=== PATIENT | male | born 1990 | race African-American/Black ===

== ENCOUNTER 2019-05-31 21:11 | Emergency (ER) | payer OTHER ==
[~2019-05-31] VITALS: Ht 175.3 cm; Wt 86.4 kg
[2019-05-31] MEDS ORDERED: KETOROLAC 30 MG/ML VIAL (J1885) IV ONE (21:45)
[2019-05-31] MEDS ORDERED: ONDANSETRON 4MG/2ML VIAL (J2405) IV ONE (21:45)
[2019-05-31] MEDS ORDERED: NS 1,000 ML IV ONE (21:45)
[2019-05-31 22:42] LABS: BASO % 0.2 % (0.0-1.0); EOS # 0.1 10^3/uL (0.0-0.5); HEMATOCRIT 48.4 % (42.0-52.0); HEMOGLOBIN 15.1 g/dl (13.5-17.5); LYMPH # 1.6 10^3/uL (1.5-5.0); LYMPH % 26.1 % (24.0-44.0); MEAN CORPUSCULAR HEMOGLOBIN 23.2 pg (27.0-33.0); MEAN CORPUSCULAR HGB CONC 31.2 g/dl (32.0-36.5); MEAN CORPUSCULAR VOLUME 74.5 fl (80.0-96.0); MONO # 0.2 10^3/uL (0.0-0.8); MONO % 3.4 % (0.0-5.0); NEUTROPHILS % 67.8 % (36.0-66.0); PLATELET COUNT, AUTOMATED 144 10^3/uL (150-450)
[2019-05-31] MEDS ORDERED: ISOVUE-370 76% 100ML VIAL (Q9967) As Ordered ONE (23:06)
[2019-05-31 23:20] LABS: ALBUMIN 4.2 GM/DL (3.2-5.2); ALT/SGPT 53 U/L (12-78); BILIRUBIN,DIRECT < 0.1 MG/DL (0.0-0.2); BILIRUBIN,TOTAL 0.4 MG/DL (0.2-1.0); LIPASE 71 U/L (73-393); TOTAL PROTEIN 7.9 GM/DL (6.4-8.2)
--- NOTE | 2019-06-01 00:26 | REPVR ---
PROCEDURE INFORMATION: Exam: CT Abdomen And Pelvis With Contrast Exam date and time: 05/31/2019 9:42 PM Age: 28 years old Clinical indication: Abdominal pain; Localized; Right lower quadrant (rlq); Additional info: Rlq abdominal pain, nausea, loss appetite TECHNIQUE: Imaging protocol: Computed tomography of the abdomen and pelvis with intravenous contrast. Radiation optimization: All CT scans at this facility use at least one of these dose optimization techniques: automated exposure control; mA and/or kV adjustment per patient size (includes targeted exams where dose is matched to clinical indication); or iterative reconstruction. Contrast material: ISO; Contrast volume: 100 ml; Contrast route: AC; COMPARISON: No relevant prior studies available. FINDINGS: Liver: Normal. No mass. Gallbladder and bile ducts: Normal. No calcified stones. No ductal dilation. Pancreas: Normal. No ductal dilation. Spleen: Normal. No splenomegaly. Adrenals: Normal. No mass. Kidneys and ureters: Normal. No hydronephrosis. Stomach and bowel: Moderate stool in the colon. No abnormal bowel dilatation. No abnormal bowel wall thickening. Negative for colonic diverticulitis. Appendix: Appendix is normal. Intraperitoneal space: Unremarkable. No free air. No significant fluid collection. Vasculature: No abdominal aortic aneurysm. Nonocclusive mild irregular hypodensity in the right anterolateral wall of the superior mesenteric artery approximately 3.5 cm distal to the origin. Series 201, image 56. No occlusion of the superior mesenteric artery are celiac trunk is evident. Lymph nodes: Unremarkable. No enlarged lymph nodes. Bladder: Unremarkable as visualized. Reproductive: Prostate is normal in size. Bones/joints: Unremarkable. No acute fracture. Soft tissues: Unremarkable. IMPRESSION: 1. Nonocclusive mild irregular hypodensity in the right anterolateral wall of the superior mesenteric artery. It is unclear if this represents motion artifact versus atherosclerotic plaque versus mural thrombus. 2. Superior mesenteric artery and celiac trunk are patent otherwise. 3. No acute findings otherwise. Electronically signed by: Leonardo Bagley On 06/01/2019 00:25:55 AM
[2019-06-01] MEDS ORDERED: SIMETHICONE 80 MG CHEW TAB PO STA (00:44)
[2019-06-01] MEDS ORDERED: DICYCLOMINE 10 MG CAP PO ONE (01:00)
[2019-06-01] MEDS ORDERED: SIME180C PO (01:22)
[2019-06-01] MEDS ORDERED: DICY10CA13 PO (01:22)
[2019-06-01 01:30] VITALS: BP 144/76
[2019-06-02] MEDS ORDERED: OMEP40CA97 PO (17:22)
[2019-06-02] MEDS ORDERED: CARA1TAB6 PO (17:23)
== END 2019-06-01 01:34 | disposition home or self-care (01) ==
LOC: M ED 21:11
DX: K55.069 Acute infarction of intestine, part and extent unspecified (principal); R10.84 Generalized abdominal pain; R11.0 Nausea
CPT/HCPCS: 74177; 80047; 80076; 83690; 85025; 96361; 96374; 96375; 99284; J1885; J2405; Q9967

== ENCOUNTER 2019-06-02 15:36 | Emergency (ER) | payer OTHER ==
[~2019-06-02] VITALS: Ht 175.3 cm; Wt 90.3 kg
[~2019-06-02 15:36] MED LIST: DICY10CA13 PO; SIME180C PO
[2019-06-02] MEDS ORDERED: NS 1,000 ML IV ONE (16:15)
[2019-06-02] MEDS ORDERED: PANTOPRAZOLE 40MG INJ (PROTONIX) (C9113) IV ONE (16:15)
[2019-06-02 16:43] LABS: EOS # 0.2 10^3/uL (0.0-0.5); EOS % 3.7 % (0.0-3.0); HEMATOCRIT 50.3 % (42.0-52.0); HEMOGLOBIN 15.7 g/dl (13.5-17.5); LYMPH # 1.7 10^3/uL (1.5-5.0); LYMPH % 41.1 % (24.0-44.0); MEAN CORPUSCULAR HEMOGLOBIN 23.6 pg (27.0-33.0); MEAN CORPUSCULAR HGB CONC 31.2 g/dl (32.0-36.5); MEAN CORPUSCULAR VOLUME 75.6 fl (80.0-96.0); MONO # 0.2 10^3/uL (0.0-0.8); MONO % 5.7 % (0.0-5.0); NEUTROPHILS # 1.9 10^3/uL (1.5-8.5); NEUTROPHILS % 48.5 % (36.0-66.0); PLATELET COUNT, AUTOMATED 119 10^3/uL (150-450); RED BLOOD COUNT 6.65 10^6/uL (4.30-6.10)
--- NOTE | 2019-06-02 16:47 | REP ---
KUB ABDOMEN AND PELVIS: KUB film of abdomen and pelvis performed. Bowel gas pattern is normal and no evidence of obstruction. No abnormal calcifications are seen. The visualized osseous structures are unremarkable. IMPRESSION: Negative KUB exam. Electronically Signed by Demond Kolb MD 06/03/2019 11:52 A
[2019-06-02 17:10] LABS: ALT/SGPT 59 U/L (12-78); BILIRUBIN,DIRECT 0.1 MG/DL (0.0-0.2); BILIRUBIN,TOTAL 0.6 MG/DL (0.2-1.0); BLOOD UREA NITROGEN 7 MG/DL (7-18); CARBON DIOXIDE LEVEL 28 MEQ/L (21-32); CHLORIDE LEVEL 102 MEQ/L (98-107); CREATININE FOR GFR 1.06 MG/DL (0.70-1.30); GLOMERULAR FILTRATION RATE > 60.0 (>60); GLUCOSE, FASTING 73 MG/DL (70-100); LIPASE 47 U/L (73-393); POTASSIUM SERUM 3.6 MEQ/L (3.5-5.1); SODIUM LEVEL 139 MEQ/L (136-145); TOTAL PROTEIN 7.7 GM/DL (6.4-8.2)
[2019-06-02] MEDS ORDERED: OMEP40CA97 PO (17:22)
[2019-06-02] MEDS ORDERED: CARA1TAB6 PO (17:23)
[2019-06-02 17:30] VITALS: BP 152/74
== END 2019-06-02 17:58 | disposition home or self-care (01) ==
LOC: M ED 15:36
DX: R10.13 Epigastric pain (principal); R11.0 Nausea
CPT/HCPCS: 74018; 80048; 80076; 83690; 85025; 96361; 96374; 99284; C9113

== ENCOUNTER → 2019-06-15 | Outpatient (CLI) | payer OTHER ==
[~2019-06-15] MED LIST changes: +CARA1TAB6 PO; +OMEP40CA97 PO
[2019-06-15 11:07] LABS: INR 1.21
[2019-06-15 11:08] LABS: PARTIAL THROMBOPLASTIN TIME 30.3 SECONDS (25.0-38.4)
[2019-06-15 11:20] LABS: ALT/SGPT 55 U/L (12-78); BILIRUBIN,DIRECT 0.2 MG/DL (0.0-0.2); BILIRUBIN,TOTAL 0.5 MG/DL (0.2-1.0); TOTAL PROTEIN 7.4 GM/DL (6.4-8.2)
[2019-06-15 11:37] LABS: H PYLORI QUALITATIVE IgG DETECTED (NEGATIVE)
[2019-06-17 08:06] LABS: F8 ACTIVITY FOR F8 PANEL 131 % (56-140); F8 ACTIVITY vWB FOR F8 PANEL 72 % (50-200); F8 ANTIGEN FOR F8 PANEL 131 % (50-200); IGASUB2 98.3 mg/dL (73.2-301.2); IGASUB3 26.6 mg/dL (13.4-97.9); IgA SERUM (part of Subclasses) 136 mg/dL (90-386); TISSUE TRANSGLUTAMINASE IgA <2 U/mL (0-3)
== END ==
LOC: M LAB 10:20
PROVIDERS: ATTEND Internal Medicine Gastroenterology
DX: R10.13 Epigastric pain (principal)

== ENCOUNTER → 2019-06-30 | Outpatient (CLI) | payer OTHER ==
--- NOTE | 2019-07-01 04:11 | REP ---
Clinical: Abdominal and epigastric pain. Technique: Real time borden scale ultrasound examination using curved array transducer. Findings: Liver, spleen, and pancreas are normal in contour, size, echogenicity without focal hepatic, splenic or pancreatic lesion identified. The gallbladder is normal and without gallstones, wall thickening, or pericholecystic fluid. No biliary ductal dilatation is appreciated and the common bile duct measures 4.5 mm diameter. The bilateral kidneys are normal in reniform shape without hydronephrosis. Right kidney measures 12.7 x 6.3 x 4.7 cm. Left kidney measures 11.6 x 6.5 x 5.3 cm. Abdominal aorta appears normal. No ascites. Doppler interrogation of the mesenteric/splanchnic vasculature cannot be performed due to overlying bowel gas. Impression: 1. Normal complete abdominal ultrasound. 2. Doppler interrogation of the splanchnic vasculature could not be performed due to extensive overlying bowel gas. Electronically Signed by Kaleb Guillaume MD 07/01/2019 04:01 A
== END ==
LOC: M RAD 07:39
PROVIDERS: ATTEND Internal Medicine Gastroenterology
DX: R10.13 Epigastric pain (principal)

== ENCOUNTER 2019-08-13 12:24 | Day surgery (SDC) | payer OTHER ==
[~2019-08-13] VITALS: Ht 175.3 cm; Wt 91.2 kg
[~2019-08-13 12:24] MED LIST changes: +IBUP200C25 PO; +NS 1,000 ML IV ONE
[2019-08-13] MEDS ORDERED: propofoL 200 MG/20 ML VIAL As Ordered ONE (13:51)
[2019-08-13] MEDS ORDERED: LIDOCAINE 2% 100MG/5ML SDV (FOR ANES.) As Ordered ONE (13:51)
--- NOTE | 2019-08-13 14:21 | ROOR ---
Patient Name: Vishal Peters Procedure Date: 08/13/2019 1:24 PM Date of : 1990 Age: 29 Room: [facility] Gender: Male Note Status: Finalized Procedure: Upper GI endoscopy Indications: Epigastric abdominal pain, Nausea with vomiting, Persistent vomiting of unknown cause Providers: Sumit Pereyra MD Referring MD: BHARATH SINHA MD Requesting Provider: Medicines: Monitored Anesthesia Care Complications: No immediate complications. Procedure: Pre-Anesthesia Assessment: - Prior to the procedure, a History and Physical was performed, and patient medications and allergies were reviewed. The patient is competent. The risks and benefits of the procedure and the sedation options and risks were discussed with the patient. All questions were answered and informed consent was obtained. Patient identification and proposed procedure were verified by the physician, the nurse and the anesthesiologist in the procedure room. Mental Status Examination: alert and oriented. Airway Examination: normal oropharyngeal airway and neck mobility. Respiratory Examination: clear to auscultation. CV Examination: normal. Prophylactic Antibiotics: The patient does not require prophylactic antibiotics. Prior Anticoagulants: The patient has taken no previous anticoagulant or antiplatelet agents. ASA Grade Assessment: II - A patient with mild systemic disease. After reviewing the risks and benefits, the patient was deemed in satisfactory condition to undergo the procedure. The anesthesia plan was to use monitored anesthesia care (MAC). Immediately prior to administration of medications, the patient was re-assessed for adequacy to receive sedatives. The heart rate, respiratory rate, oxygen saturations, blood pressure, adequacy of pulmonary ventilation, and response to care were monitored throughout the procedure. The physical status of the patient was re-assessed after the procedure. The Endoscope was introduced through the mouth, and advanced to the second part of duodenum. The upper GI endoscopy was accomplished without difficulty. The patient tolerated the procedure well. Findings: The examined esophagus was normal. The Z-line was regular and was found 42 cm from the incisors. Scattered mild inflammation characterized by erythema and granularity was found in the gastric antrum. Biopsies were taken with a cold forceps for Helicobacter pylori testing. Verification of patient identification for the specimen was done by the physician and nurse using the patient's name, date and medical record number. Estimated blood loss was minimal. The duodenal bulb and second portion of the duodenum were normal. Biopsies for histology were taken with a cold forceps for evaluation of celiac disease. Impression: - Normal esophagus. - Z-line regular, 42 cm from the incisors. - Gastritis. Biopsied. - Normal duodenal bulb and second portion of the duodenum. Biopsied. Recommendation: - Patient has a contact number available for emergencies. The signs and symptoms of potential delayed complications were discussed with the patient. Return to normal activities tomorrow. Written discharge instructions were provided to the patient. - Anti-acid reflux diet -- small meals, sit upright atleast 1 hour after meals, avoid fatty/ oily foods and avoid foods that cause reflux. - Continue present medications. - Await pathology results. - Telephone GI clinic for pathology results in 2 weeks. - Return to primary care physician. Sumit Pereyra MD Sumit Pereyra MD 08/13/2019 2:20:49 PM Electronically signed by Sumit Pereyra MD Number of Addenda: 0 Note Initiated On: 08/13/2019 1:24 PM Estimated Blood Loss: Estimated blood loss was minimal.
[2019-08-13 14:45] VITALS: BP 125/69
== END 2019-08-13 15:04 | disposition home or self-care (01) ==
LOC: M OPP 12:24
PROVIDERS: ATTEND Internal Medicine Gastroenterology
DX: K29.70 Gastritis, unspecified, without bleeding (principal); R11.2 Nausea with vomiting, unspecified; R11.15 Cyclical vomiting syndrome unrelated to migraine; R10.13 Epigastric pain

== ENCOUNTER 2020-04-17 18:27 | Emergency (ER) | payer OTHER ==
[~2020-04-17] VITALS: Ht 177.8 cm; Wt 90.9 kg
[~2020-04-17 18:27] MED LIST changes: -NS 1,000 ML IV ONE
--- OUTSIDE RECORDS SUMMARY | 2020-04-17 18:31 | CCD ---
Author Author [facility] Address Unknown Phone Unavailable Support Name Relationship Address Phone NONE, PT PER Next Of Kin - -, - - - [employer] Next Of Kin [address] [place] [address] Unavailable NEERAJ FIGUEROA Next Of Kin [address] [place] [address] Re-disclosure Warning The records that you are about to access may contain information from federally-assisted alcohol or drug abuse programs. If such information is present, then the following federally mandated warning applies: This information has been disclosed to you from records protected by federal confidentiality rules (42 CFR part 2). The federal rules prohibit you from making any further disclosure of this information unless further disclosure is expressly permitted by the written consent of the person to whom it pertains or as otherwise permitted by 42 CFR part 2. A general authorization for the release of medical or other information is NOT sufficient for this purpose. The Federal rules restrict any use of the information to criminally investigate or prosecute any alcohol or drug abuse patient.The records that you are about to access may contain highly sensitive health information, the redisclosure of which is protected by Article 27-F of the [facility] Public Health law. If you continue you may have access to information: Regarding HIV / AIDS; Provided by facilities licensed or operated by the [facility] Office of Mental Health; or Provided by the [facility] Office for People With Developmental Disabilities. If such information is present, then the following [facility] mandated warning applies: This information has been disclosed to you from confidential records which are protected by state law. State law prohibits you from making any further disclosure of this information without the specific written consent of the person to whom it pertains, or as otherwise permitted by law. Any unauthorized further disclosure in violation of state law may result in a fine or retirement sentence or both. A general authorization for the release of medical or other information is NOT sufficient authorization for further disc losure. Encounters Encounter Providers Location Date Indications Data Source(s ) Outpatient 07/11/2019 07:11:00 AM EDT [facility] Outpatient 06/16/2019 04:55:00 AM EDT [facility] Medications Medication Brand Name Start Date Product Form Dose Route Admi nistrative Instructions Pharmacy Instructions Status Indications Reaction Description Data Source(s) 8 HR Acetaminophen 650 MG Extended Release Oral Tablet [Tyle nol] Tylenol 8 Hour 05/18/2019 12:00:00 AM EDT active [facility] ([facility], ) Insurance Providers Payer name Policy type / Coverage type Policy ID Covered republican ID Covered republican's relationship to [place] Policy [place] Plan Information [employer] D[employer]Y [id number] SP [id number] HU[employer] EAST REG O [id number] S [id number] E[employer] D[employer]Y [id number] SP [id number] EAST [employer] - O/P [id number] 18 [id number] Problems, Conditions, and Diagnoses Code Display Name Description Problem Type Effective Dates Data Source(s) 5765882 Lumbosacral radiculopathy Lumbosacral radiculopathy Pr oblem 05/18/2019 12:00:00 AM EDT [facility] ([facility], ) [id number] Numbness of lower limb Numbness of lower limb Problem 05/18/2019 12:00:00 AM EDT [facility] ([facility], ) [id number] Chronic low back pain Chronic low back pain Problem 05/18/2019 12:00:00 AM EDT [facility] ([facility], ) Surgeries/Procedures Procedure Description Date Indications Data Source(s) Needle electromyography, each extremity, with related paraspinal areas, when performed, done with nerve conduction, amplitude and latency/velocity study; complete, five or more muscles studied, innervated by three or more nerves or four or more spinal levels (list separately in addition to the code for primary procedure). 05/19/2019 12:00:00 AM EDT [facility] T ([facility], ) Needle electromyography, each extremity, with related paraspinal areas, when performed, done with nerve conduction, amplitude and latency/velocity study; complete, five or more muscles studied, innervated by three or more nerves or four or more spinal levels (list separately in addition to the code for primary procedure). 05/19/2019 12:00:00 AM EDT [facility] ([facility]) [address] Nerve conduction studies 13 or more studies NEW 201205/19/2019 12:00:00 AM EDT [facility] ([facility]) Vital Signs ID Date Data Source UNK Name Value Range Interpretation Code Description Data Source(s) Body weight 92.081 kg 92.081 kg [facility] ([facility]) Body mass index (BMI) [Ratio] 29.1 kg/m2 29.1 k g/m2 [facility] ([facility]) Body weight 203.00 [lb_av] 203.00 [lb_av] [facility] ([facility]) Body height 70 [in_i] 70 [in_i] [facility] ([facility]) 5'10" Diastolic blood pressure 68 mm[Hg] 68 mm[Hg] [facility] ([facility]) Systolic blood pressure 124 mm[Hg] 124 mm[Hg] [facility] ([facility]) Body mass index (BMI) [Ratio] 27.5 kg/m2 27.5 k g/m2 [facility] ([facility]) Body weight 186.00 [lb_av] 186.00 [lb_av] [facility] ([facility]) Body height 69 [in_i] 69 [in_i] [facility] ([facility]) 5'9" Heart rate 72 /min 72 /min [facility] ([facility]) Diastolic blood pressure 80 mm[Hg] 80 mm[Hg] [facility] ([facility]) Systolic blood pressure 120 mm[Hg] 120 mm[Hg] [facility] ([facility])
[2020-04-17] MEDS ORDERED: ONDA4TAB6 PO (18:48)
[2020-04-17] MEDS ORDERED: NS 1,000 ML IV ONE (19:45)
[2020-04-17] MEDS ORDERED: ACETAMINOPHEN 325 MG TAB PO ONE (19:45)
[2020-04-17] MEDS ORDERED: GI COCKTAIL 50ML BTL(HYOSCYAMINE/MAALOX/LIDOCAINE VISCOUS)(1:3:1) PO ONE (19:45)
[2020-04-17] MEDS ORDERED: ONDANSETRON 4MG/2ML VIAL IV ONE (19:45)
--- NOTE | 2020-04-17 20:00 | REP ---
INDICATION: DYSPNEA/COUGH. COMPARISON: None. TECHNIQUE: SINGLE PORTABLE AP VIEW OF THE CHEST WAS PERFORMED. FINDINGS: THERE IS NO ACUTE INFILTRATE OR PULMONARY EDEMA. LUNGS ARE CLEAR. HEART IS NOT SIGNIFICANTLY ENLARGED. MEDIASTINAL SILHOUETTE IS UNREMARKABLE. THE VISUALIZED OSSEOUS STRUCTURES ARE INTACT. IMPRESSION: NO ACUTE PULMONARY DISEASE. <Electronically signed by Demond Kolb > 04/17/201955
[2020-04-17 20:46] LABS: BASO % 0.3 % (0.0-1.0); EOS # 0.1 10^3/uL (0.0-0.5); EOS % 2.2 % (0.0-3.0); HEMATOCRIT 45.6 % (42.0-52.0); HEMOGLOBIN 13.9 g/dl (13.5-17.5); LYMPH # 1.8 10^3/uL (1.5-5.0); LYMPH % 56.8 % (24.0-44.0); MEAN CORPUSCULAR HEMOGLOBIN 22.9 pg (27.0-33.0); MEAN CORPUSCULAR HGB CONC 30.5 g/dl (32.0-36.5); MONO # 0.2 10^3/uL (0.0-0.8); MONO % 6.8 % (2.0-8.0); NEUTROPHILS # 1.1 10^3/uL (1.5-8.5); NEUTROPHILS % 33.6 % (36.0-66.0); PLATELET COUNT, AUTOMATED 156 10^3/uL (150-450); RED BLOOD COUNT 6.08 10^6/uL (4.30-6.10); WHITE BLOOD COUNT 3.2 10^3/uL (4.0-10.0)
--- OUTSIDE RECORDS SUMMARY | 2020-04-17 21:02 | CCD ---
Author [facility] Address Unknown Phone Unavailable Support Name Relationship Address Phone [place] Next Of Kin [address] [place] [id number] NONE, PT PER Next Of Kin - -, - - - [employer] Next Of Kin [address] [place] [address] Unavailable NEERAJ FIGUEROA Next Of Philip [phone], [place] [address] Re-disclosure Warning The records that you are [...] is protected by Article 27-F of the [facility] Public Health law. If you continue you may have access to information: Regarding HIV / AIDS; Provided by facilities licensed or operated by the [facility] Office of Mental Health; or Provided by the [facility] Office for People With Developmental Disabilities. If such information is present, then the following [facility] mandated warning applies: This information has [...] law may result in a fine or shelter sentence or both. A general authorization for the release of medical or other information is NOT sufficient authorization for further disc losure. Encounters Encounter Providers Location Date Indications Data Source(s ) Outpatient 07/11/2019 07:11:00 AM EDT [facility] Outpatient 06/16/2019 04:55:00 AM EDT [facility] Medications Medication Brand Name Start Date Product Form Dose Route Admi nistrative Instructions Pharmacy Instructions Status Indications Reaction Description Data Source(s) 8 HR Acetaminophen 650 MG Extended Release Oral Tablet [Tyle nol] Tylenol 8 Hour 05/18/2019 12:00:00 AM EDT active [facility] ([facility], ) Insurance Providers Payer name Policy type / Coverage type Policy ID Covered republican ID Covered republican's relationship to [place] Policy [place] Plan Information [employer]Y [id number] SP [id number] HU[employer] EAST REG O [id number] S [id number] [facility] ACTIVE DUTY [id number] SP [id number] EAST [employer] - O/P [id number] Problems, Conditions, and Diagnoses Code Display Name Description Problem Type Effective Dates Data Source(s) 9368343 Lumbosacral radiculopathy Lumbosacral radiculopathy Pr oblem 05/18/2019 12:00:00 AM EDT [facility] ([facility], ) [id number] Numbness of lower limb Numbness of lower limb Problem 05/18/2019 12:00:00 AM EDT [facility] ([facility], ) [id number] Chronic low back pain Chronic low back pain Problem 05/18/2019 12:00:00 AM EDT [facility] ([facility], ) Surgeries/Procedures Procedure Description Date Indications Data Source(s) Needle electromyography, each extremity, with related paraspinal areas, when performed, done with nerve conduction, amplitude and latency/velocity study; complete, five or more muscles studied, innervated by three or more nerves or four or more spinal levels (list separately in addition to the code for primary procedure). 05/19/2019 12:00:00 AM EDT [facility] ([facility], ) Needle electromyography, each extremity, with related paraspinal areas, when performed, done with nerve conduction, amplitude and latency/velocity study; complete, five or more muscles studied, innervated by three or more nerves or four or more spinal levels (list separately in addition to the code for primary procedure). 05/19/2019 12:00:00 AM ED[facility] [address] Nerve conduction studies 13 or more studies NEW 201205/19/2019 12:00:00 AM EDT [facility] ([facility]) Vital Signs ID Date Data Source UNK Name Value Range Interpretation Code Description Data Source(s) Body weight 92.081 kg 92.081 kg [facility] ([facility]) Body mass index (BMI) [Ratio] 29.1 kg/m2 29.1 k g/m2 [facility] ([facility]) Body weight 203.00 [lb_av] 203.00 [lb_av] [facility]) Body height 70 [in_i] 70 [in_i] [facility] ([facility]) 5'10" Diastolic blood pressure 68 mm[Hg] 68 mm[Hg] [facility] ([facility]) Systolic blood pressure 124 mm[Hg] 124 mm[Hg] [facility] ([facility]) Body mass index (BMI) [Ratio] 27.5 kg/m2 27.5 k g/m2 [facility] ([facility]) Body weight 186.00 [lb_av] 186.00 [lb_av] [facility]) Body height 69 [in_i] 69 [in_i] [facility] ([facility]) 5'9" Heart rate 72 /min 72 /min [facility] ([facility]) Diastolic blood pressure 80 mm[Hg] 80 mm[Hg] [facility] ([facility]) Systolic blood pressure 120 mm[Hg] 120 mm[Hg] [facility] ([facility])
[2020-04-17 21:20] LABS: ALBUMIN 3.7 GM/DL (3.2-5.2); ALT/SGPT 196 U/L (12-78); BILIRUBIN,DIRECT < 0.1 MG/DL (0.0-0.2); BILIRUBIN,TOTAL 0.3 MG/DL (0.2-1.0); BLOOD UREA NITROGEN 14 MG/DL (7-18); CALCIUM LEVEL 8.5 MG/DL (8.5-10.1); CARBON DIOXIDE LEVEL 30 MEQ/L (21-32); CHLORIDE LEVEL 107 MEQ/L (98-107); CK-MB VALUE MASS 1.4 NG/ML (<3.6); CPK CREATINE PHOSPHOKINASE 178 U/L (39-308); CREATININE FOR GFR 0.97 MG/DL (0.70-1.30); GLOMERULAR FILTRATION RATE > 60.0 (>60); GLUCOSE, FASTING 78 MG/DL (70-100); MB/CK RELATIVE INDEX 0.79 (< OR =4); NT-PRO BNP < 5 PG/ML (<125); SODIUM LEVEL 142 MEQ/L (136-145); TROPONIN I < 0.02 NG/ML (< 0.10)
[2020-04-18] VITALS: BP 122/60
--- NOTE | 2020-04-18 16:28 | ECGEPIP ---
[facility] - ED Test Date: 2020-04-17 Pat Name: HUSEYIN FIGUEROA Department: Room: - Gender: Male Analytical Technician: RICHARD : 1990 Requested By: Jh Garrett Order Number: [id number] Reading MD: Jc Philippe Measurements Intervals [place] Rate: 63 P: 50 MS: 178 QRS: 49 QRSD: 98 T: 19 QT: 346 QTc: 354 Interpretive Statements Normal sinus rhythm with sinus arrhythmia ST elevation, consider early repolarization, pericarditis, or injury Comparison tracing not on file Electronically Signed on 04-18-2020 16:28:01 EST by Jc Philippe
== END 2020-04-18 00:34 | disposition home or self-care (01) ==
LOC: M ED 18:27
DX: U07.1 COVID-19 (principal); R06.02 Shortness of breath; R11.2 Nausea with vomiting, unspecified; R19.7 Diarrhea, unspecified
CPT/HCPCS: 71045; 80048; 80076; 82550; 82553; 83880; 84484; 85025; 93005; 93041; 94760; 96361; 96374; 99285; J2405

== ENCOUNTER 2020-07-19 00:21 | Inpatient (IN) | payer OTHER ==
[~2020-07-19] VITALS: Ht 177.8 cm; Wt 91.0 kg
[~2020-07-19 00:21] MED LIST changes: +ONDA4TAB6 PO; -SIME180C PO; +SIME180C25 PO
[2020-07-19] MEDS ORDERED: IBUP1TAB7 PO (05:58)
[2020-07-19] MEDS ORDERED: MAALOX 30 ML SUSP *UDC PO PRN (08:10)
[2020-07-19] MEDS ORDERED: MOM 30ML SUSPENSION UDC PO PRN (08:10)
[2020-07-19] MEDS ORDERED: AMIT10TA7 PO (08:26)
[2020-07-19] MEDS ORDERED: hydrOXYzine 50 MG TAB PO PRN (14:25)
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
[2020-07-19] MEDS ORDERED: FLUoxetine 10 MG CAP PO ONE (15:00)
[2020-07-19 16:20] VITALS: BP 124/56
[2020-07-19] MEDS: risperiDONE 2 MG TAB PO SCH (21:33)
[2020-07-20] MEDS ORDERED: UNRESOLVED CLARIFICATION ENTRY XX SCH (00:01)
[2020-07-20 06:30] VITALS: BP 103/51
[2020-07-20] MEDS: FLUoxetine 20 MG CAP PO SCH (09:53)
--- NOTE | 2020-07-20 13:04 | HPEPDOC ---
General Date of Admission July 19, 2020 at 08:09 Date of Service: July 20, 2020 Chief Complaint The patient is a 29-year-old male admitted with a reason for visit of Unspecified Depressive Disorder. 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 He is being examined here for medical history and physical. He reports he often feels dizzy on standing up and fall face down. He could not tell me how he came to [facility] ED and how he fell down when he was found face down in the road. He also reports that he has trouble swallowing solid food and feels like it gets stuck in the throat so he prefers to eat soft foods likel oatmeal. He also reports that every night when he lays down he feels the food coming up to his throat and he has to throw up. He complains of epigastric pain dull aching 4/10 in intensity. He also complains of left illiac fossa pain. He reports that he has daily bowel movements. Home Medications Scheduled Amitriptyline HCl (Amitriptyline HCl) 10 Mg Tablet, PO DAILY, (Reported) Scheduled PRN Ibuprofen (Ibuprofen) 800 Mg Tablet, 800 MG PO TID PRN for PAIN, (Reported) Allergies Coded Allergies: No Known Allergies (Unverified , 05/31/19) Past Medical History Medical History Hypertension Surgical History None Family History Significant Family History: Diabetes (mother), Hypertension (mother and maternal gransmother) Social History * Smoker: non-smoker Alcohol: Denies Drugs: denies A-FIB/CHADSVASC A-FIB History Current/History of A-Fib/PAF?: No Review of Systems Constitutional: Denies: Chills, Fever, Night Sweats Eyes: Denies: Pain, Vision change ENT: Reports: Dysphagia Skin: Denies: Rash, Lesions, Breakdown Pulmonary: Denies: Dyspnea, Cough Cardiovascular: Reports: Lt Headedness; Denies: Chest Pain, Palpitations, Orthopnea, Paroxysmal Noc. Dyspnea Gastrointestinal: Reports: Vomiting (every night), Abdominal Pain (upper); Denies: Nausea, Diarrhea Genitourinary: Denies: Dysuria, Frequency, Incontinence, Retention Musculoskeletal: Reports: Neck Pain, Back Pain, Shoulder Pain Physical Examination General Exam: Positive: Alert, No Acute Distress Eye Exam: Positive: PERRLA, Conjunctiva & lids normal, EOMI; Negative: Sclera icteric ENT Exam: Positive: Atraumatic, Mucous membr. 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 He is being examined here for medical history and physical. Has multiple somatic complaints. Major depression with psychotic features as per psychiatry Dizziness and falls will check orthostatic vitals. will get an EKG. Dysphagia/Abdominal pain and daily vomiting likely has GERD will give omeprazole and continue as outpatient. if no improvement would benefit from a Cookie swallow. Plan / VTE VTE Prophylaxis Ordered?: No (freely ambulatory) JOANIE ROGERS MD July 20, 2020 13:04
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
[2020-07-20 16:27] VITALS: BP_SYST 134; BP_SYST 140; BP_DIAS 64; BP_DIAS 67
[2020-07-20 16:30] VITALS: BP 123/73
--- NOTE | 2020-07-20 17:21 | ECGEPIP ---
Test Date: 2020-07-20 Pat Name: HUSEYIN FIGUEROA Department: Room: [place] [address] Gender: Male Hammerer Tab: KOKO : 1990 Requested By: JOANIE ROGERS Order Number: [id number] Reading MD: Stevie Soliman Measurements Intervals [place] Rate: 72 P: 37 CO: 170 QRS: 53 QRSD: 90 T: 20 QT: 296 QTc: 324 Interpretive Statements Normal sinus rhythm with sinus arrhythmia Nonspecific ST and T wave abnormality, likely early repolarization Compared to prior tracing of 04/17/2020, repolarization abnormalities are less p prominent Electronically Signed on 07-20-2020 17:21:01 EDT by Stevie Soliman
[2020-07-20] MEDS: risperiDONE 2 MG TAB PO SCH (21:00)
[2020-07-20] MEDS ORDERED: OLANZapine ORAL DISINTEGRATING TAB 5MG PO ONE (21:35)
[2020-07-20] MEDS: OMEPRAZOLE 20 MG CAP PO SCH (21:59)
[2020-07-21 06:58] VITALS: BP 109/61
[2020-07-21] MEDS: FLUoxetine 20 MG CAP PO SCH (08:40)
--- NOTE | 2020-07-21 11:41 | MHIPNPDOC ---
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 Patient was found face down in the road covered in mud. He reported that he has no memory of what brought him to the ED. In the interview today patient states that he has been having suicidal thoughts for the past 6-7 months. 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 He is very bothered by it. Patient was born in [facility], a country in [place]. . 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 He reports a back, shoulder and leg injury from his work in the [employer] reports that he is the oldest in his family. He hasn't seen them in 7 years. Currently, his mother is sick and he has the obligation of sending money home and feels that due to his injuries. He hasn't been able to send as much money due to his pain, depressive symptoms, and states that he often has dialogue with himself where he blames himself for his failures. Zafar reports auditory and visual hallucinations. 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 PER ED REPORT: Pt. was a transfer from [facility] ER for psychiatric evaluation due to SI and AH. Per [facility] report, pt. was found face down in road covered in mud. Pt. reports that he does not have any memory of circumstances surrounding why he was taken to ER. He states he was told that he was found in the road, he states he remembers vaguely getting into ambulance. Pt reports he has been feeling depressed for past two months, states family issues. He does not offer much information, just answers questions in few words. He states he has gone to [facility] on walk in over past couple months due to depression. He reports having vague suicidal thoughts starting about two months ago that worsened into thoughts of stabbing himself or jumping off a bridge. He admits to current suicidal thoughts. He reports also having auditory hallucinations on/off for past couple of months, telling him bad things about himself, recently progressing to telling him to harm himself and that bad things are going to happen. He denies MH history prior to what he has stated within last two months. Per pt. EMMIE-Sgt. Leanne Navarro ([phone]), pt. did not show up for work Friday (07/17),pt. had sent EMMIE a picture of a d/c summary? from [facility] ER and stated he was going/had going to clinic to be seen but did not show up there. Pt. was unable to be reached via phone and pt. no longer had contact with them. Per EMMIE, pt. stated that she spoke with pt. on Friday and they had argued, she left with their two children. Per EMMIE there is investigation into circumstance. VITAL SIGNS: See below. NEW TEST RESULTS: see results CURRENT MEDICATIONS: See below. 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 General Appearance: well groomed, appears stated age, hospital scrubs/clothing Build: other (muscular build) Demeanor: withdrawn, guarded Eye Contact: fair Activity: slowed, anxious Behavior: withdrawn Speech: low in volume Mood: depressed, anxious Affect: flat Thought Process: logical/linear Thought Content (Other): guarded Thought Content (Aggressive): none reported Perception (Hallucinations): auditory, visual hallucinations Perception (Other): none reported Cognition(Intelligence Est.): average Oriented: Awake, Alert, Oriented times three Insight: fair Judgment: Fair Psychosis: Denies DIAGNOSES: Major Depressive Disorder, Single Episode with Psychotic Features rule out Obsessive Compulsive Disorder rule out PTSD Generalized Anxiety Disorder ASSESSMENT: Reports of bad dreams, rates his depression 6/10 and his anxiety is 4/10. His stressors today is rage, reports that every time he closes his eyes he wants to scream, yell at everyone that bother who put him in a bad position or gave him a hard time. ([employer] staff and one other peer here). Reports that his memory is an issue, states that he is angry at himself because he has problems remembering Friday through Friday. Does not remember how he ended up on the street, does not remember hitting his head and states that for the past month he has been having nightmares but has not remember them in the past. Lately he states that he can remember fighting in his dreams fighting bad people, doing bad things and that these are violent dreams. MANAGEMENT PLAN: Continue all medications, initiated Prazosin 2 mg HS for nightmares, and increase Fluoxetine to 30 mg, will discharge when stable TIME SPENT: 25 minutes. Vital Signs Vital Signs Date Time Temp Pulse Resp B/P (MAP) Pulse Ox O2 Delivery O2 Flow Rate FiO2 07/21/20 06:58 98.3 51 18 109/61 (77) 100 Room Air Current Medications Current Medications Medications (Trade) Dose Ordered Sig/Sameera Route PRN Reason Start Time Stop Time Status Last Admin Dose Admin Acetaminophen (Tylenol Tab) 650 mg Q6HP PRN PO HEADACHE or DISCOMFORT 07/19/20 08:10 Al Hydrox/Mg Hydrox/Simethicone (Mylanta) 30 ml Q4HP PRN PO HEARTBURN/INDIGESTION 07/19/20 08:10 Fluoxetine HCl (PROzac) 20 mg DAILY PO 07/20/20 09:00 07/21/20 08:40 Home Med (Med Rec Complete!) ASDIRECTED XX 07/19/20 06:00 07/19/20 06:16 DC Hydroxyzine HCl (Atarax) 50 mg Q6HP PRN PO ANXIETY 07/19/20 14:25 Lorazepam (Ativan) 1 mg BIDP PRN PO ANXIETY/AGITATION 07/19/20 08:10 Magnesium Hydroxide (Milk Of Magnesia) 30 ml DAILYPRN PRN PO CONSTIPATION 07/19/20 08:10 Miscellaneous (Unresolved Clarification Entry) SEE LABEL COMMENTS UNRESOLVED XX 07/20/20 00:01 07/19/20 15:37 DC Omeprazole (PriLOSEC) 40 mg QHS PO 07/20/20 21:00 07/20/20 21:59 Risperidone (RisperDAL) 2 mg QHS PO 07/19/20 21:00 07/19/20 21:33 Trazodone HCl (Desyrel) 50 mg QHSP PRN PO INSOMNIA 07/19/20 08:10 Allergies Coded Allergies: No Known Allergies (Unverified , 05/31/19) TOM PEÑA NP July 21, 2020 11:39
[2020-07-21 16:31] VITALS: BP_SYST 112; BP_SYST 127; BP_SYST 136; BP_DIAS 58; BP_DIAS 68; BP_DIAS 86
[2020-07-21] MEDS: PRAZOSIN 1 MG CAP PO SCH (21:08)
[2020-07-21] MEDS: risperiDONE 2 MG TAB PO SCH (21:08)
[2020-07-21] MEDS: OMEPRAZOLE 20 MG CAP PO SCH (21:08)
[2020-07-22 06:19] VITALS: BP_SYST 104; BP_SYST 112; BP_DIAS 56; BP_DIAS 57
[2020-07-22] MEDS: FLUoxetine 10 MG CAP PO SCH (08:51)
--- NOTE | 2020-07-22 13:34 | MHIPN ---
[facility] PROGRESS NOTE DATE: 07/22/2020 VITAL SIGNS: Blood pressure 126/56, pulse 62, temperature 98.2. CHIEF COMPLAINT: Feels stressed. SUBJECTIVE: This is a video assessment. He is seen in the presence of staff. He is in the inpatient unit in psychiatry. I am at home. He says he continues to feel stressed, anxious, depressed. Has nightmares, some of which are related to past traumas, including that during training. Spoke of possibility hallucinating. Says that is what has been observed, that he had been talking to his mother, but she was not there. He reiterated some of the history and concerns and the burdens he feels, not meeting expectations that he feels his family may have in [facility], [facility], with his desire. Also sense of duty to look after his mother and family. Says works extra jobs. 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 He last suggests that he was doing well about a year and a half ago, before the pandemic, but that by June last year things were increasingly difficult, to the point where he wanted to visit family in [facility] [place] but could not. Sleep is disrupted. Appetite fair. Vague on suicidal thoughts. Suggests there are times when he wishes he would not wake up. MENTAL STATUS EXAMINATION: Neat, cooperative. No agitation. No psychomotor retardation. Appears somewhat distressed. Mildly anxious. Appears depressed. Does not at present appear internally preoccupied. Cognition is grossly intact. Judgment and insight compromised. ASSESSMENT: 1. Major depressive disorder, severe, possibly with psychotic features. 2. Posttraumatic stress disorder. Remains distressed and has experienced a recurrence of trauma-related symptoms given these more recent stressors. This often tends to occur even though the stressors are not being directly related to the past traumas. His sense of guilt regarding his perceived failures when it comes to his family of origin also complicates the picture further. PLAN: Continue current care, including the Prozac, which has just been increased to 30 mg daily today, and Prazosin 2 mg at night, risperidone 2 mg at night. Tolerates them well so far. Would suggest encouraging him to participate in activities in the unit. Would also suggest exploring supports for him, particularly when he leaves, with people who may be able to understand his cultural concerns and give support. Cognitive reframing is also attempted. We will continue with present precautions. The assessment took 20 minutes.
[2020-07-22 16:16] VITALS: BP_SYST 116; BP_SYST 136; BP_DIAS 54; BP_DIAS 78
[2020-07-22] MEDS: traZODone 50 MG TAB PO PRN (22:05)
[2020-07-22] MEDS: OMEPRAZOLE 20 MG CAP PO SCH (22:05)
[2020-07-22] MEDS: risperiDONE 2 MG TAB PO SCH (22:05)
[2020-07-22] MEDS: PRAZOSIN 1 MG CAP PO SCH (22:06)
[2020-07-23 06:29] VITALS: BP_SYST 118; BP_SYST 131; BP_SYST 93; BP_DIAS 51; BP_DIAS 60; BP_DIAS 65
[2020-07-23] MEDS: FLUoxetine 10 MG CAP PO SCH (08:47)
[2020-07-23 16:27] VITALS: BP_SYST 110; BP_SYST 120; BP_SYST 137; BP_DIAS 59; BP_DIAS 68; BP_DIAS 71
[2020-07-23 18:49] VITALS: BP_SYST 122; BP_SYST 124; BP_SYST 145; BP_DIAS 58; BP_DIAS 68; BP_DIAS 75
[2020-07-23] MEDS: PRAZOSIN 1 MG CAP PO SCH (20:55)
[2020-07-23] MEDS: OMEPRAZOLE 20 MG CAP PO SCH (20:55)
[2020-07-23] MEDS: risperiDONE 2 MG TAB PO SCH (20:55)
[2020-07-24 06:43] VITALS: BP 104/54
[2020-07-24] MEDS: FLUoxetine 10 MG CAP PO SCH (08:16)
[2020-07-24] MEDS: ACETAMINOPHEN TAB 650MG DOSE (2X325MG) PO PRN ×2 (11:31→20:36)
[2020-07-24] MEDS: LORazepam 1 MG TAB PO PRN (11:32)
[2020-07-24 19:25] VITALS: BP 130/60
[2020-07-24] MEDS: OMEPRAZOLE 20 MG CAP PO SCH (20:35)
[2020-07-24] MEDS: PRAZOSIN 1 MG CAP PO SCH (20:35)
[2020-07-24] MEDS: risperiDONE 2 MG TAB PO SCH (20:35)
[2020-07-25 06:26] VITALS: BP 105/52
[2020-07-25] MEDS: FLUoxetine 10 MG CAP PO SCH (08:04)
--- NOTE | 2020-07-25 11:58 | MHIPN ---
[facility] PROGRESS NOTE DATE: 07/23/2020 VITAL SIGNS: Blood pressure 137/59. Another reading had suggested 110/68. Pulse varies from 88-69. CHIEF COMPLAINT: Feels anxious SUBJECTIVE: Seen for followup. This is a video assessment. I am at home. He is in the inpatient unit. He says he has been feeling anxious. Had difficulty with sleep. Has continued nightmares. Also suggests gets the impression that his first sergeant is watching him, though he is not there. Realizes that. Says had also felt his first sergeant had been picking on him, including during the recent episcopal holy month for the patient, where he says they were given exemptions for PT but that the exemptions were not fully honored for his unit. He raised it and says the person did not like it and feels he was picked on afterward. He indicates he has been feeling a bit dizzy as well, particularly when he changes positions. Appetite is fair. MENTAL STATUS EXAMINATION: Neat, cooperative. No agitation. No psychomotor retardation. Coherent. Affect restricted but reactive. Denies any suicidal thoughts or intents. No homicidal ideas or intents, though does say that he wishes at times that he would . No evidence of any overt psychosis. Cognition grossly intact. Judgment good. Insight fair. ASSESSMENT: 1. Major depressive disorder, severe. 2. Posttraumatic stress disorder. There is a possibility he may have some orthostatic hypotension as well. He is stressed, overly self-conscious, has trauma-related symptoms, though possibly not overt psychosis. PLAN: Continue Prozac 30 mg daily. Continue prazosin 2 mg at night. Tolerates them well so far, though it is possible the prazosin may be contributing to some of the dizziness. We will continue the rest of the care, and he is advised on changing positions slowly. We will monitor for this. Further recommendations will be made depending on the clinical picture. He is to be seen by the assigned psychiatrist or clinician tomorrow.
--- NOTE | 2020-07-25 14:47 | MHIPNPDOC ---
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 Patient was found face down in the road covered in mud. He reported that he has no memory of what brought him to the ED. In the interview today patient states that he has been having suicidal thoughts for the past 6-7 months. 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 He is very bothered by it. Patient was born in [place], a country in [place]. . 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 He reports a back, shoulder and leg injury from his work in the [employer] reports that he is the oldest in his family. He hasn't seen them in 7 years. Currently, his mother is sick and he has the obligation of sending money home and feels that due to his injuries. He hasn't been able to send as much money due to his pain, depressive symptoms, and states that he often has dialogue with himself where he blames himself for his failures. Zafar reports auditory and visual hallucinations. 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 PER ED REPORT: Pt. was a transfer from [facility] ER for psychiatric evaluation due to SI and AH. Per [facility] report, pt. was found face down in road covered in mud. Pt. reports that he does not have any memory of circumstances surrounding why he was taken to ER. He states he was told that he was found in the road, he states he remembers vaguely getting into ambulance. Pt reports he has been feeling depressed for past two months, states family issues. He does not offer much information, just answers questions in few words. He states he has gone to [facility] on walk in over past couple months due to depression. He reports having vague suicidal thoughts starting about two months ago that worsened into thoughts of stabbing himself or jumping off a bridge. He admits to current suicidal thoughts. He reports also having auditory hallucinations on/off for past couple of months, telling him bad things about himself, recently progressing to telling him to harm himself and that bad things are going to happen. He denies MH history prior to what he has stated within last two months. Per pt. EMMIE-Sgt. Leanne Navarro ([phone]), pt. did not show up for work Friday (07/17),pt. had sent EMMIE a picture of a d/c summary? from [facility] ER and stated he was going/had going to clinic to be seen but did not show up there. Pt. was unable to be reached via phone and pt. no longer had contact with them. Per EMMIE, pt. stated that she spoke with pt. on Friday and they had argued, she left with their two children. Per EMMIE there is investigation into circumstance. VITAL SIGNS: See below. NEW TEST RESULTS: see results CURRENT MEDICATIONS: See below. 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 General Appearance: well groomed, appears stated age, hospital scrubs/clothing Build: other (muscular build) Demeanor: withdrawn, guarded Eye Contact: fair Activity: slowed, anxious Behavior: withdrawn Speech: low in volume Mood: depressed Affect: constricted Thought Process: logical/linear Thought Content (Other): guarded Thought Content (Aggressive): none reported Perception (Hallucinations): no c/o auditory, visual hallucinations Perception (Other): none reported Cognition(Intelligence Est.): average Oriented: Awake, Alert, Oriented times three Insight: fair Judgment: Fair Psychosis: Denies DIAGNOSES: Major Depressive Disorder, Single Episode with Psychotic Features rule out Obsessive Compulsive Disorder rule out PTSD Generalized Anxiety Disorder ASSESSMENT: Reports of bad dreams, reports of continued depression and anxiety but has improved incrementally. He states that much of his anxiety stems from interaction between himself and his first Sergeant with whom he feels targeted. He reports that he felt that his anglican and cultural differences were targeted many times and is the crux of his depression and anxiety. He reports that his inability to wear the heavy equipment during formation due to injuries made him a target. Patient appears quite sad. Has psychomotor slowness and continues to be withdrawn and guarded. Recommended patient to attend groups and be in the milieu MANAGEMENT PLAN: Continue all medications, will discharge when stable TIME SPENT: 25 minutes. Vital Signs Vital Signs Date Time Temp Pulse Resp B/P (MAP) Pulse Ox O2 Delivery O2 Flow Rate FiO2 07/25/20 06:26 99.7 76 18 105/52 (69) 99 Room Air Current Medications Current Medications Medications (Trade) Dose Ordered Sig/Sameera Route PRN Reason Start Time Stop Time Status Last Admin Dose Admin Acetaminophen (Tylenol Tab) 650 mg Q6HP PRN PO HEADACHE or DISCOMFORT 07/19/20 08:10 07/24/20 20:36 Al Hydrox/Mg Hydrox/Simethicone (Mylanta) 30 ml Q4HP PRN PO HEARTBURN/INDIGESTION 07/19/20 08:10 Fluoxetine HCl (PROzac) 20 mg DAILY PO 07/20/20 09:00 07/21/20 11:40 DC 07/21/20 08:40 Fluoxetine HCl (PROzac) 30 mg QAM PO 07/22/20 09:00 07/25/20 08:04 Home Med (Med Rec Complete!) ASDIRECTED XX 07/19/20 06:00 07/19/20 06:16 DC Hydroxyzine HCl (Atarax) 50 mg Q6HP PRN PO ANXIETY 07/19/20 14:25 Lorazepam (Ativan) 1 mg BIDP PRN PO ANXIETY/AGITATION 07/19/20 08:10 07/24/20 11:32 Magnesium Hydroxide (Milk Of Magnesia) 30 ml DAILYPRN PRN PO CONSTIPATION 07/19/20 08:10 Miscellaneous (Unresolved Clarification Entry) SEE LABEL COMMENTS UNRESOLVED XX 07/20/20 00:01 07/19/20 15:37 DC Omeprazole (PriLOSEC) 40 mg QHS PO 07/20/20 21:00 07/24/20 20:35 Prazosin HCl (Minipress) 2 mg QHS PO 07/21/20 21:00 07/24/20 20:35 Risperidone (RisperDAL) 2 mg QHS PO 07/19/20 21:00 07/24/20 20:35 Trazodone HCl (Desyrel) 50 mg QHSP PRN PO INSOMNIA 07/19/20 08:10 07/22/20 22:05 Allergies Coded Allergies: No Known Allergies (Unverified , 05/31/19) TOM PEÑA [employer] ADVIS[employer] Jul 25, 2020 14:47
[2020-07-25] MEDS: ACETAMINOPHEN TAB 650MG DOSE (2X325MG) PO PRN (17:12)
[2020-07-25 18:11] VITALS: BP 108/72
[2020-07-25] MEDS: OMEPRAZOLE 20 MG CAP PO SCH (21:24)
[2020-07-25] MEDS: risperiDONE 2 MG TAB PO SCH (21:24)
[2020-07-25] MEDS: PRAZOSIN 1 MG CAP PO SCH (21:25)
[2020-07-26 06:00] VITALS: BP_SYST 123; BP_SYST 133; BP_SYST 144; BP_DIAS 62; BP_DIAS 65
[2020-07-26] MEDS: FLUoxetine 10 MG CAP PO SCH (08:29)
--- NOTE | 2020-07-26 15:19 | MHIPNPDOC ---
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 Patient was found face down in the road covered in mud. He reported that he has no memory of what brought him to the ED. In the interview today patient states that he has been having suicidal thoughts for the past 6-7 months. 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 He is very bothered by it. Patient was born in [facility] [place] [facility], [place] in [place]. . 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 He reports a back, shoulder and leg injury from his work in the [employer] reports that he is the oldest in his family. He hasn't seen them in 7 years. Currently, his mother is sick and he has the obligation of sending money home and feels that due to his injuries. He hasn't been able to send as much money due to his pain, depressive symptoms, and states that he often has dialogue with himself where he blames himself for his failures. Zafar reports auditory and visual hallucinations. 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 PER ED REPORT: Pt. was a transfer from [facility] ER for psychiatric evaluation due to SI and AH. Per [facility] report, pt. was found face down in road covered in mud. Pt. reports that he does not have any memory of circumstances surrounding why he was taken to ER. He states he was told that he was found in the road, he states he remembers vaguely getting into ambulance. Pt reports he has been feeling depressed for past two months, states family issues. He does not offer much information, just answers questions in few words. He states he has gone to [facility] on walk in over past couple months due to depression. He reports having vague suicidal thoughts starting about two months ago that worsened into thoughts of stabbing himself or jumping off a bridge. He admits to current suicidal thoughts. He reports also having auditory hallucinations on/off for past couple of months, telling him bad things about himself, recently progressing to telling him to harm himself and that bad things are going to happen. He denies MH history prior to what he has stated within last two months. Per pt. EMMIE-Sgt. Leanne Navarro ([phone]), pt. did not show up for work Friday (07/17),pt. had sent EMMIE a picture of a d/c summary? from [facility] ER and stated he was going/had going to clinic to be seen but did not show up there. Pt. was unable to be reached via phone and pt. no longer had contact with them. Per EMMIE, pt. stated that she spoke with pt. on Friday and they had argued, she left with their two children. Per EMMIE there is investigation into circumstance. VITAL SIGNS: See below. NEW TEST RESULTS: see results CURRENT MEDICATIONS: See below. 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 General Appearance: well groomed, appears stated age, hospital scrubs/clothing Build: other (muscular build) Demeanor: withdrawn, guarded Eye Contact: poor, had eyes diverted away Activity: slowed, anxious Behavior: withdrawn Speech: low in volume Mood: depressed Affect: constricted Thought Process: logical/linear Thought Content (Other): guarded Thought Content (Aggressive): none reported Perception (Hallucinations): no c/o auditory, visual hallucinations Perception (Other): none reported Cognition(Intelligence Est.): average Oriented: Awake, Alert, Oriented times three Insight: fair Judgment: Fair Psychosis: Denies DIAGNOSES: Major Depressive Disorder, Single Episode with Psychotic Features rule out Obsessive Compulsive Disorder rule out PTSD Generalized Anxiety Disorder ASSESSMENT: Reports of feeling tired and dizzy. In report treatment team had received information from [employer] that patient is being investigated f or travel to [facility] without permission from [place]. When asked about this the patient denied this, but then had poor eye contact. He was very low in his speech, states that he is anxious about leaving because he continues to ruminate about being "targeted" by his First Sergeant. States that he is worried about his mother who is currently sick, states that his depression and anxiety is an 8/10. Although his symptoms appear to be magnified, he denies having suicidal thinking and we have discussed that much of his ability to cope with his feelings about his First Sergeant can be addressed un therapy at [facility] who can advocate for him. He continued to worry about his return. Encouraged patient to continue to speak to his about his feelings and emotional distress as she is an emotional support for him. MANAGEMENT PLAN: Continue all medications, will discharge on Friday TIME SPENT: 25 minutes. Vital Signs Vital Signs Date Time Temp Pulse Resp B/P (MAP) Pulse Ox O2 Delivery O2 Flow Rate FiO2 07/26/20 06:00 98.5 64 18 133/62 (85) 99 Room Air Current Medications Current Medications Medications (Trade) Dose Ordered Sig/Sameera Route PRN Reason Start Time Stop Time Status Last Admin Dose Admin Acetaminophen (Tylenol Tab) 650 mg Q6HP PRN PO HEADACHE or DISCOMFORT 07/19/20 08:10 07/25/20 17:12 Al Hydrox/Mg Hydrox/Simethicone (Mylanta) 30 ml Q4HP PRN PO HEARTBURN/INDIGESTION 07/19/20 08:10 Fluoxetine HCl (PROzac) 20 mg DAILY PO 07/20/20 09:00 07/21/20 11:40 DC 07/21/20 08:40 Fluoxetine HCl (PROzac) 30 mg QAM PO 07/22/20 09:00 07/26/20 08:29 Home Med (Med Rec Complete!) ASDIRECTED XX 07/19/20 06:00 07/19/20 06:16 DC Hydroxyzine HCl (Atarax) 50 mg Q6HP PRN PO ANXIETY 07/19/20 14:25 07/25/20 17:12 Lorazepam (Ativan) 1 mg BIDP PRN PO ANXIETY/AGITATION 07/19/20 08:10 07/24/20 11:32 Magnesium Hydroxide (Milk Of Magnesia) 30 ml DAILYPRN PRN PO CONSTIPATION 07/19/20 08:10 Miscellaneous (Unresolved Clarification Entry) SEE LABEL COMMENTS UNRESOLVED XX 07/20/20 00:01 07/19/20 15:37 DC Omeprazole (PriLOSEC) 40 mg QHS PO 07/20/20 21:00 07/25/20 21:24 Prazosin HCl (Minipress) 2 mg QHS PO 07/21/20 21:00 07/25/20 21:25 Risperidone (RisperDAL) 2 mg QHS PO 07/19/20 21:00 07/25/20 21:24 Trazodone HCl (Desyrel) 50 mg QHSP PRN PO INSOMNIA 07/19/20 08:10 07/22/20 22:05 Allergies Coded Allergies: No Known Allergies (Unverified , 05/31/19) TOM PEÑA NP Jul 26, 2020 15:02
[2020-07-26 17:10] VITALS: BP_SYST 118; BP_SYST 120; BP_SYST 126; BP_DIAS 68; BP_DIAS 85
[2020-07-26] MEDS: LORazepam 1 MG TAB PO PRN (18:54)
[2020-07-26] MEDS: ACETAMINOPHEN TAB 650MG DOSE (2X325MG) PO PRN (18:56)
[2020-07-26] MEDS: OMEPRAZOLE 20 MG CAP PO SCH (21:07)
[2020-07-26] MEDS: risperiDONE 2 MG TAB PO SCH (21:07)
[2020-07-26] MEDS: traZODone 50 MG TAB PO PRN (21:07)
[2020-07-26] MEDS: PRAZOSIN 1 MG CAP PO SCH (21:08)
[2020-07-27 07:06] VITALS: BP 132/66
[2020-07-27] MEDS ORDERED: MINI1CAP PO (07:58)
[2020-07-27] MEDS ORDERED: RISP-9 PO (07:58)
[2020-07-27] MEDS ORDERED: FLUO10CA16 PO (07:58)
[2020-07-27] MEDS ORDERED: OMEP-218 PO (07:58)
[2020-07-27] MEDS: FLUoxetine 10 MG CAP PO SCH (08:05)
[2020-07-27] MEDS ORDERED: HYDR50TA70 PO (12:12)
--- NOTE | 2020-07-27 12:27 | MHIPNPDOC ---
[facility] Progress Note Progress Note DATE OF SERVICE: 07/27/20 HISTORY: Patient is a 29 -year-old , [employer] Duty , male, who was sent to [facility] from [facility] for suicidal ideations. Patient was found face down in the road covered in mud. He reported that he has no memory of what brought him to the ED. In the interview today patient states that he has been having suicidal thoughts for the past 6-7 months. 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 He is very bothered by it. Patient was born in [facility] [place], a country in [place]. . 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 He reports a back, shoulder and leg injury from his work in the [employer] reports that he is the oldest in his family. He hasn't seen them in 7 years. Currently, his mother is sick and he has the obligation of sending money home and feels that due to his injuries. He hasn't been able to send as much money due to his pain, depressive symptoms, and states that he often has dialogue with himself where he blames himself for his failures. Zafar reports auditory and visual hallucinations. 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 PER ED REPORT: Pt. was a transfer from [facility] ER for psychiatric evaluation due to SI and AH. Per [facility] report, pt. was found face down in road covered in mud. Pt. reports that he does not have any memory of circumstances surrounding why he was taken to ER. He states he was told that he was found in the road, he states he remembers vaguely getting into ambulance. Pt reports he has been feeling depressed for past two months, states family issues. He does not offer much information, just answers questions in few words. He states he has gone to [facility] on walk in over past couple months due to depression. He reports having vague suicidal thoughts starting about two months ago that worsened into thoughts of stabbing himself or jumping off a bridge. He admits to current suicidal thoughts. He reports also having auditory hallucinations on/off for past couple of months, telling him bad things about himself, recently progressing to telling him to harm himself and that bad things are going to happen. He denies MH history prior to what he has stated within last two months. Per pt. EMMIE-Sgt. Leanne Navarro ([phone]), pt. did not show up for work Friday (07/17),pt. had sent EMMIE a picture of a d/c summary? from [facility] ER and stated he was going/had going to clinic to be seen but did not show up there. Pt. was unable to be reached via phone and pt. no longer had contact with them. Per EMMIE, pt. stated that she spoke with pt. on Friday and they had argued, she left with their two children. Per EMMIE there is investigation into circumstance. VITAL SIGNS: See below. NEW TEST RESULTS: see results CURRENT MEDICATIONS: See below. 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 for suicidal ideations. General Appearance: well groomed, appears stated age, hospital scrubs/clothing Build: other (muscular build) Demeanor: average but mildly guarded Eye Contact: maintained Activity: slowed, anxious Behavior: withdrawn Speech: normal tone and volume Mood: depressed Affect: constricted Thought Process: logical/linear Thought Content (Other): guarded Thought Content (Aggressive): none reported Perception (Hallucinations): no c/o auditory, visual hallucinations Perception (Other): none reported Cognition(Intelligence Est.): average Oriented: Awake, Alert, Oriented times three Insight: fair Judgment: Fair Psychosis: Denies DIAGNOSES: Major Depressive Disorder, Single Episode with Psychotic Features rule out Obsessive Compulsive Disorder rule out PTSD Generalized Anxiety Disorder ASSESSMENT: Patient states that his depression has improved but 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 States that he is having difficulty and frustration with his ability to not overreact when he is confronted by his Sergeants and other Staff. Reinforced with patient to use relaxation techniques and grounding techniques to help him through difficult moments. Encouraged patient to use his family and their welfare as a motivator to stay in control and not let his anger or temper flare. He ruminated today about how he fears that how he is treated or certain looks from people will cause his to react. He reports that he does have some support from other Muslims in the [employer] and states that the Quran helps him. MANAGEMENT PLAN: Continue all medications, will discharge on Friday TIME SPENT: 25 minutes. Vital Signs Vital Signs Date Time Temp Pulse Resp B/P (MAP) Pulse Ox O2 Delivery O2 Flow Rate FiO2 07/27/20 07:06 97.1 90 16 132/66 (88) 100 Room Air Current Medications Current Medications Medications (Trade) Dose Ordered Sig/Sameera Route PRN Reason Start Time Stop Time Status Last Admin Dose Admin Acetaminophen (Tylenol Tab) 650 mg Q6HP PRN PO HEADACHE or DISCOMFORT 07/19/20 08:10 07/26/20 18:56 Al Hydrox/Mg Hydrox/Simethicone (Mylanta) 30 ml Q4HP PRN PO HEARTBURN/INDIGESTION 07/19/20 08:10 Fluoxetine HCl (PROzac) 20 mg DAILY PO 07/20/20 09:00 07/21/20 11:40 DC 07/21/20 08:40 Fluoxetine HCl (PROzac) 30 mg QAM PO 07/22/20 09:00 07/27/20 08:05 Home Med (Med Rec Complete!) ASDIRECTED XX 07/19/20 06:00 07/19/20 06:16 DC Hydroxyzine HCl (Atarax) 50 mg Q6HP PRN PO ANXIETY 07/19/20 14:25 07/25/20 17:12 Lorazepam (Ativan) 1 mg BIDP PRN PO ANXIETY/AGITATION 07/19/20 08:10 07/26/20 18:54 Magnesium Hydroxide (Milk Of Magnesia) 30 ml DAILYPRN PRN PO CONSTIPATION 07/19/20 08:10 Miscellaneous (Unresolved Clarification Entry) SEE LABEL COMMENTS UNRESOLVED XX 07/20/20 00:01 07/19/20 15:37 DC Omeprazole (PriLOSEC) 40 mg QHS PO 07/20/20 21:00 07/26/20 21:07 Prazosin HCl (Minipress) 2 mg QHS PO 07/21/20 21:00 07/26/20 21:08 Risperidone (RisperDAL) 2 mg QHS PO 07/19/20 21:00 07/26/20 21:07 Trazodone HCl (Desyrel) 50 mg QHSP PRN PO INSOMNIA 07/19/20 08:10 07/26/20 21:07 Allergies Coded Allergies: No Known Allergies (Unverified , 05/31/19) TOM PEÑA NP Jul 27, 2020 12:27
[2020-07-27 16:06] VITALS: BP_SYST 111; BP_SYST 113; BP_SYST 122; BP_DIAS 51; BP_DIAS 60; BP_DIAS 71
[2020-07-27 20:54] VITALS: BP 118/66
[2020-07-27] MEDS: PRAZOSIN 1 MG CAP PO SCH (20:54)
[2020-07-27] MEDS: risperiDONE 2 MG TAB PO SCH (20:54)
[2020-07-27] MEDS: OMEPRAZOLE 20 MG CAP PO SCH (20:55)
[2020-07-27] MEDS: traZODone 50 MG TAB PO PRN (22:09)
[2020-07-27] MEDS: ACETAMINOPHEN TAB 650MG DOSE (2X325MG) PO PRN (22:10)
[2020-07-28 06:16] VITALS: BP 119/88
[2020-07-28] MEDS: FLUoxetine 10 MG CAP PO SCH (08:34)
--- NOTE | 2020-07-28 10:43 | MHDSPDOC ---
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 Patient was found face down in the road covered in mud. He reported that he has no memory of what brought him to the ED. In the interview today patient states that he has been having suicidal thoughts for the past 6-7 months. 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 He is very bothered by it. Patient was born in [place], a country in [place]. . 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 He reports a back, shoulder and leg injury from his work in the [employer] reports that he is the oldest in his family. He hasn't seen them in 7 years. Currently, his mother is sick and he has the obligation of sending money home and feels that due to his injuries. He hasn't been able to send as much money due to his pain, depressive symptoms, and states that he often has dialogue with himself where he blames himself for his failures. Zafar reports auditory and visual hallucinations. 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 PER ED REPORT: Pt. was a transfer from [facility] ER for psychiatric evaluation due to SI and AH. Per [facility] report, pt. was found face down in road covered in mud. Pt. reports that he does not have any memory of circumstances surrounding why he was taken to ER. He states he was told that he was found in the road, he states he remembers vaguely getting into ambulance. Pt reports he has been feeling depressed for past two months, states family issues. He does not offer much information, just answers questions in few words. He states he has gone to [facility] on walk in over past couple months due to depression. He reports having vague suicidal thoughts starting about two months ago that worsened into thoughts of stabbing himself or jumping off a bridge. He admits to current suicidal thoughts. He reports also having auditory hallucinations on/off for past couple of months, telling him bad things about himself, recently progressing to telling him to harm himself and that bad things are going to happen. He denies MH history prior to what he has stated within last two months. Per pt. EMMIE-Sgt. Leanne Ramon ([phone]), pt. did not show up for work Friday (07/17),pt. had sent EMMIE a picture of a d/c summary? from [facility] ER and stated he was going/had going to clinic to be seen but did not show up there. Pt. was unable to be reached via phone and pt. no longer had contact with them. Per EMMIE, pt. stated that she spoke with pt. on Friday and they had argued, she left with their two children. Per EMMIE there is investigation into circumstance. VITAL SIGNS: See below. CONSULTANTS INVOLVED: See Medical H + P by Hospitalist TREATMENT AND PROGRESS ON THE UNIT: Patient was admitted to the [facility] on a .39 legal status he was afforded the following treatment modalities: 1) Individual Therapy 2) Group Therapy 3) Medication Management 4) Milieu Therapy 5) Safe Environment HOSPITAL COURSE: Patient was admitted to [facility] on a 9.39 legal status and was started on Zoloft and Prazosin. He had at times anxiety, and was afforded both Hydroxyzine and Ativan for anxiety and agitation. He had one two days visual and auditory hallucinations of his mother and was observed speaking to her, although other staff had not reported this. It was reported to the treatment team that the patient was being investigated for leaving the country without permission and patient had denied this. Throughout his hospitalization he talked about being a target in the [employer] reporting that the staff were not cognizant of his hindu requests to maintain his ability to pray, keep his cason and other hindu affirmations. 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 Patient was withdrawn and isolative most of the time, had minimal contact with his peers but compliant with medications. DISCHARGE ASSESSMENT: In today's interview, patient is alert and oriented, pts dress is appropriate. Hygiene and grooming is well-kempt. Smiles on approach and is pleasant and engaged in the interview. Denies depression and anxiety. Denies suicidal and homicidal ideation, planning or intent. Denies and is not observed with jasbir, psychotic symptoms of delusions, bizarre thinking, obsessions, paranoia, ruminations illogical thoughts, flight of ideas or having poor insight and judgement. Patient has normal mentation, declines further hospitalization on a voluntary status and meets criteria for discharge today. Patient encouraged to return to hospital if symptoms worsen or change and encouraged to call unit if he/she/they needs to speak to provider for questions regarding medications or care. 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 Speech: Is fluid, soft and low, rate, tone and volume Language skills are intact Thought processes including: linear and goal oriented Thought content: denies depression and anxiety. Denies suicidal/homicidal ideation, planning or intent. Abstract reasoning, and computation: fair Description of associations: denies, none observed Description of abnormal or psychotic thoughts: denies, none observed. Judgment: fair Insight: fair Orientation: alert and oriented to person, place, time and situation Recent and remote memory: intact Attention span and concentration: good Language: expansive Fund of knowledge: average Mood: Euthymic Mood Affect: reactive MEDICATIONS ON DISCHARGE: See Medication Reconciliation PLAN/FOLLOWUP ARRANGEMENTS: The amount of time spent in the coordination of care for this patient was approximately 25 minutes. ETOH/Disorder Med Rx ETOH/DRUG DISORDER RX: N/A Vital Signs/I&Os Vital Signs Date Time Temp Pulse Resp B/P (MAP) Pulse Ox O2 Delivery O2 Flow Rate FiO2 07/28/20 06:16 98.7 66 14 119/88 (98) 99 Room Air Medications Scheduled Fluoxetine Hcl (Fluoxetine HCl) 10 Mg Capsule, 30 MG PO QAM for Depression, #30 Omeprazole (Omeprazole) 20 Mg Capsule.dr, 40 MG PO QHS for Reflux, #14 Prazosin HCl (Minipress) 1 Mg Capsule, 2 MG PO QHS for Nightmares, #7 Risperidone (Risperidone) 2 Mg Tablet, 2 MG PO QHS for Antipsychotic, #7 Scheduled PRN Hydroxyzine HCl (Hydroxyzine HCl) 50 Mg Tablet, 50 MG PO BIDP PRN for ANXIETY, #14 Ibuprofen (Ibuprofen) 800 Mg Tablet, 800 MG PO TID PRN for PAIN, (Reported) Allergies Coded Allergies: No Known Allergies (Unverified , 05/31/19) TOM PEÑA NP Jul 28, 2020 10:43
== END 2020-07-28 09:33 | disposition home or self-care (01) | DRG 885 ==
LOC: M ED 00:21 → M ED INP 08:09 → M PSY 12:40
PROVIDERS: ADMIT Psychiatry & Neurology Psychiatry; ATTEND Psychiatry & Neurology Psychiatry
DX: F32.3 Major depressive disorder, single episode, severe with psychotic features (principal); R45.851 Suicidal ideations; F41.1 Generalized anxiety disorder; F43.10 Post-traumatic stress disorder, unspecified; Z79.899 Other long term (current) drug therapy; I10 Essential (primary) hypertension; R42 Dizziness and giddiness; R29.6 Repeated falls; K21.9 Gastro-esophageal reflux disease without esophagitis; F42.9 Obsessive-compulsive disorder, unspecified

== ENCOUNTER 2020-08-09 09:53 | Inpatient (IN) | payer OTHER ==
[~2020-08-09] VITALS: Ht 177.8 cm; Wt 90.9 kg
[~2020-08-09 09:53] MED LIST changes: +AMIT10TA7 PO; +FLUO10CA16 PO; +HYDR50TA70 PO; +IBUP1TAB7 PO; +MINI1CAP PO; +OMEP-218 PO; +OMEP40CA4 PO; -OMEP40CA97 PO; +RISP-9 PO
[2020-08-09] MEDS ORDERED: AMIT10TA7 PO (10:34)
[2020-08-09 11:04] LABS: HEMATOCRIT 48.8 % (42.0-52.0); HEMOGLOBIN 14.9 g/dl (13.5-17.5); MEAN CORPUSCULAR HEMOGLOBIN 23.4 pg (27.0-33.0); MEAN CORPUSCULAR HGB CONC 30.5 g/dl (32.0-36.5); MEAN CORPUSCULAR VOLUME 76.7 fl (80.0-96.0); PLATELET COUNT, AUTOMATED 169 10^3/uL (150-450); RED BLOOD COUNT 6.36 10^6/uL (4.30-6.10)
[2020-08-09 11:43] LABS: ACETAMINOPHEN LEVEL < 2.0 UG/ML (10.0-30.0); ALBUMIN 4.2 GM/DL (3.2-5.2); ALT/SGPT 37 U/L (12-78); BILIRUBIN,DIRECT 0.1 MG/DL (0.0-0.2); BILIRUBIN,TOTAL 0.4 MG/DL (0.2-1.0); BLOOD UREA NITROGEN 13 MG/DL (7-18); CARBON DIOXIDE LEVEL 29 MEQ/L (21-32); CHLORIDE LEVEL 108 MEQ/L (98-107); CREATININE FOR GFR 1.07 MG/DL (0.70-1.30); ETHYL ALCOHOL (ETHANOL) 0.003 % (0.000-0.010); GLOMERULAR FILTRATION RATE > 60.0 (>60); GLUCOSE, FASTING 77 MG/DL (70-100); POTASSIUM SERUM 3.9 MEQ/L (3.5-5.1); SALICYLATE LEVEL < 1.7 MG/DL (5.0-30.0); SODIUM LEVEL 140 MEQ/L (136-145); THYROID STIMULATING HORMONE 0.635 uIU/ML (0.358-3.740)
[2020-08-09 11:58] LABS: AMPHETAMINES LEVEL URINE NEGATIVE (NEGATIVE); BARBITURATES URINE NEGATIVE (NEGATIVE); BENZODIAZEPINES URINE NEGATIVE (NEGATIVE); CANNABINOIDS URINE NEGATIVE (NEGATIVE); COCAINE METABOLITE URINE NEGATIVE (NEGATIVE); METHADONE URINE NEGATIVE (NEGATIVE); OPIATES URINE NEGATIVE (NEGATIVE); PHENCYCLIDINE URINE NEGATIVE (NEGATIVE)
[2020-08-09] MEDS ORDERED: PRAZ1CAP PO (15:16)
[2020-08-09] MEDS ORDERED: HYDR50TA70 PO (15:16)
[2020-08-09] MEDS ORDERED: RISP-9 PO (15:16)
[2020-08-09] MEDS ORDERED: FLUO10CA16 PO (15:16)
[2020-08-09] MEDS ORDERED: OMEP1CAP73 PO (15:16)
[2020-08-09 16:18] LABS: RSV AMPLIFICATION NEGATIVE (NEGATIVE)
[2020-08-09] MEDS ORDERED: LORazepam 1 MG TAB PO PRN (18:45)
[2020-08-09] MEDS ORDERED: MOM 30ML SUSPENSION UDC PO PRN (18:45)
[2020-08-09] MEDS ORDERED: MAALOX 30 ML SUSP *UDC PO PRN (18:45)
[2020-08-09] MEDS ORDERED: IBUPROFEN 800 MG TAB PO PRN (18:45)
[2020-08-09] MEDS ORDERED: traZODone 50 MG TAB PO PRN (18:45)
[2020-08-09 19:53] VITALS: BP 124/75
[2020-08-09] MEDS: FLUoxetine 10 MG CAP PO SCH (21:17)
[2020-08-09] MEDS: PRAZOSIN 1 MG CAP PO SCH (21:20)
[2020-08-09] MEDS: risperiDONE 2 MG TAB PO SCH (21:20)
[2020-08-09] MEDS: OMEPRAZOLE 20 MG CAP PO SCH (21:20)
[2020-08-09] MEDS: AMITRIPTYLINE 10MG TABLET PO SCH (21:20)
[2020-08-10 05:52] VITALS: BP 148/65
[2020-08-10] MEDS: FLUoxetine 10 MG CAP PO SCH (08:20)
[2020-08-10] MEDS: hydrOXYzine 50 MG TAB PO PRN (12:13)
[2020-08-10] MEDS: ACETAMINOPHEN TAB 650MG DOSE (2X325MG) PO PRN (12:14)
--- NOTE | 2020-08-10 12:54 | HPEPDOC ---
[facility] Medical History & Physical Date of Admission Aug 10, 2020 Date of Service: Aug 10, 2020 History and Physical CHIEF COMPLAINT: Medical evaluation HISTORY OF PRESENT ILLNESS: Patient admitted to the inpatient mental health unit for suicidal ideations. I am asked to provide a medical assessment of patient admitted to the psychiatric unit. My assessment is limited to medical problems and does not address any psychiatric problems which is deferred to the in-house psychiatrist. Patient has no medical complaints feels well, no complaints at this time. He admits he has a history of migraines but does not have a headache at this time. Also admits to a history of acid reflux however asymptomatic at this time. PAST MEDICAL/SURGICAL HISTORY: Endorses a history of migraine headaches and acid reflux. Denies previous surgeries. SOCIAL HISTORY: Denies drinking alcohol Denies smoking tobacco Denies illicit drug use FAMILY HISTORY: Tells me he does not know his family medical history admits his mother has multiple medical problems he is unaware of ALLERGIES: Please see below. REVIEW OF SYSTEMS: 10 point review of systems complete all negative otherwise stated in HPI HOME MEDICATIONS: Please see below. PHYSICAL EXAMINATION: Constitutional: Awake and alert, in no apparent distress ENT: Sclera are clear. Mucosa is moist. Respiratory: Lungs CTA bilaterally. No respiratory distress. Cardiovascular: RRR S1 and S2 are normal, no murmur Gastrointestinal: Abdomen is soft, non distended, non tender Musculoskeletal: No lower extremity edema. Neurologic: No focal neurological deficit. Mental Status: Soft-spoken Skin: No visible rashes LABORATORY DATA: See below. IMAGING: See chart MICROBIOLOGY: Please see below. ASSESSMENT/PLAN Medical evaluation for patient admitted to inpatient mental health unit. Patient is doing well and has no active medical problems. Follow-up with PCP after discharge. Follow-up with recommendations and management from psychiatry. Tylenol as needed for headaches A Yousef Hospitalist Vital Signs Vital Signs Date Time Temp Pulse Resp B/P (MAP) Pulse Ox O2 Delivery O2 Flow Rate FiO2 08/10/20 05:52 99.4 56 18 148/65 (92) 100 Room Air Laboratory Data Labs 24H Laboratory Tests 2 08/09/20 15:23: Coronavirus (COVID-19)(PCR) NEGATIVE, Influenza Type A (RT-PCR) NEGATIVE, Influenza Type B (RT-PCR) NEGATIVE, Respiratory Syncytial Virus (PCR) NEGATIVE Home Medications Scheduled Amitriptyline HCl (Amitriptyline HCl) 10 Mg Tablet, 10 MG PO QHS Fluoxetine Hcl (Fluoxetine HCl) 10 Mg Capsule, 30 MG PO DAILY Omeprazole (Omeprazole) 20 Mg Capsule.dr, 40 MG PO QHS Prazosin Hcl (Prazosin HCl) 1 Mg Capsule, 2 MG PO QHS Risperidone (Risperidone) 2 Mg Tablet, 2 MG PO QHS Scheduled PRN Hydroxyzine HCl (Hydroxyzine HCl) 50 Mg Tablet, 50 MG PO BID PRN for ANXIETY Ibuprofen (Ibuprofen) 800 Mg Tablet, 800 MG PO TID PRN for PAIN Allergies Coded Allergies: No Known Allergies (Unverified , 05/31/19) CYNDEE GHOSH MD Aug 10, 2020 12:54
--- NOTE | 2020-08-10 15:42 | MHHPEPDOC ---
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 Also, reports auditory hallucinations, reporting that he is "worthless." in the interview, he had minimal responses, did not make eye contact and did not state that he had suicidal ideation. PER ED REPORT: TW received a call from COURTNEY Gao at [facility]. He stated that he was sending pt to the ED "for a higher level of care." He states that pt reported AH & VH, & the AH are telling him that he is worthless. Per Mr. Crow, pt also expressed SI with no plan. He states that pt is restless & is having difficulty communicating. Pt was brought to the ED by [facility] after pt voiced SI with no plan to [facility] provider. He also reported command AH telling him that he is a "failure" and should kill himself. Pt states, "I don't feel safe." Pt reports suffering from fleeting SI with no specific plan, last thought was this morning. Stressors include his Mother being sick and is obligated to send money home([facility]). In addition to above stressor, he admits struggling with command AH over the past few days. He states the voices are derogatory and tell him to kill himself. He believes he is worthless and does not deserve to live. Pt also reports having VH. He describes VH as "my mother and odd things that I cannot explain." Pt appears very depressed during interview, he notes feeling increasingly paranoid and believes "random" people are following him with intent to kill him. At this time, pt continues to express SI with no plan and command AH. Pt was last admitted to [facility] 07/19/20 and d/c 07/28/20. Discharge diagnosis was Major Depressive Disorder, single episode with Psychotic Features. According to [facility] documentation, pt is currently under EVA investigation for an unauthorized trip to [place] and returning with a large sum of money. He apparently denied to [facility] provider that he is in trouble and denied he was on a plane. Pt also denied EVA investigation to TW. Psychiatric Review of Systems Depression (2 or more weeks): depressed mood, anhedonia, feelings of worthlesness, decreased energy, difficulty concentrating, suicidal thoughts, ot her (, per ED report, poor impulse control) Linda (4 or more days of): denies Psychosis: auditory hallucination, visual hallucination, paranoia PTSD: history of trauma Anxiety: situational anxiety, stressor related anxiety Past Psychiatric History Previous Psychiatric Diagnosis: Major depressive disorder, generalized anxiety disorder. Previous Psychiatric Admissions:. One other psychiatric hospitalization 106/05/2020. Suicide Attempts: Vague suicidal ideation with no plan. Psychiatric Follow-up:. [facility]. Psychiatric medications:. Patient discharged on Zoloft. Past Medical History Medical Problems Hypertension History of Back, shoulder and left leg injuries No history of surgeries No known drug allergies Head Injury: Yes Seizures: No Hospitalizations: Yes Surgeries: No Family Medical/Psychiatric HX Medical Problems Unknown medical Psychiatric Disorders: No Suicide Attemps/Completions: No Social History Childhood: Per his last chart - Born in [facility] to both parents, has several brothers and sisters. States that he is the eldest. Therefore, he is responsible for sending money home. He reports he hasn't seen his family in 7 years and his mother is sick currently. . He reports that he has not been able to send money, feels that he he needs to find extra work but due to back and shoulder pain. He has been unable to find work. He came to the [place] in [place] and listed in the [employer] in 2019 and his contract is up in July 2021 On this admission. Per the ED report and report from [facility] on his last hospitalization. Patient has left the country went home to [place] without permission. He is currently being investigated for this while he reports that he is trying to send money home to his mother. Per report from [facility] . He returned from [place] with significant amount of money Abuse/Trauma:. Denies. Current Living Situation: Currently lives with his and children, ages 9 and 4 years. Education: High school diploma. Employment:, Active duty . Social Support: . Legal:. The patient is being investigated by the [employer] for leaving the country without permission. He returned with a significant amount of money. Marital:, . Mental Status Examination General Appearance: well groomed, appears stated age, hospital scubs/clothing Build: other (, muscular build) Demeanor: mistrustful, withdrawn, guarded Eye Contact: avoidant, other (, eyes were closed) Speech: slow, low in volume, impoverished Mood: depressed, anxious Affect: constricted Thought Process: logical/linear Thought Content (Delusions): none reported Thought Content (Other): none reported Thought Content (Aggressive): none reported Perception (Hallucinations): auditory, visual Perception (Other): none reported Cognition (Impairment of): none reported Cognition(Intelligence Est.): average Oriented: Awake, Alert, Oriented times three Insight: fair Judgment: Fair Psychosis: Denies (Unspecified Depressive Disorder) Diagnoses Major Depressive Disorder, recurrent, mild A-FIB/CHADSVASC A-FIB History Current/History of A-Fib/PAF?: No Current PO Anticoag Therapy: No Assessment Patient is a 30-year-old , active duty [place] who reports that he has increased anxiety and auditory hallucinations over the weekend. Patient was recently discharged from this facility on 07/28/2020. He states that the voices tell him that he is worthless. In the interview. He was minimal in his responses, refused to make eye contact and has impoverished communication.. He reports vague depressive symptoms. Has minimal responses to provider. According to the ED report, patient is being investigated for leaving the country without permission and he returned with a significant amount of money. On his last admission the Patient had reported feeling significantly guilty for not sending his family enough money.. It is unclear as to where this money has generated from. . He reports that his says that he is very distant complaints that his mom is very sick and has been for a year. . He reports having difficulty at work. Complains of pain, poor sleep, depressed mood and anxiety. The patient is to be admitted to [facility] on a legal 39 - he is to resume all of his home medications. We will discharge him when he is stable Initial Treatment Plan 1. Patient was admitted on a [939] status. 2. Complete history was obtained. 3. With patients permission, family will be contacted and database will be expanded. 4. Patients medication regimen will be reviewed and changed accordingly. 5. Patient will be provided with protected environment. 6. Patient will be treated with individual, group, and milieu therapies. 7. Patient will receive supportive psych-education. 8. Discharge planning will commence immediately. 9. Outpatient follow-up treatment will be strongly recommended. 10. The initial treatment plan will focus initially on: * Depression. * Risk for suicide. ESTIMATED LENGTH OF STAY: 5-7 DAYS. TIME SPENT COUNSELING AND COORDINATING INITIAL CARE: 60 minutes. Tobacco Cessation Screen If Patient is a Smoker Patient is not a smoker Ordered/Pending Vital Signs Vital Signs Date Time Temp Pulse Resp B/P (MAP) Pulse Ox O2 Delivery O2 Flow Rate FiO2 08/10/20 05:52 99.4 56 18 148/65 (92) 100 Room Air Laboratory Data 24H Labs Laboratory Tests 2 08/09/20 15:23: Coronavirus (COVID-19)(PCR) NEGATIVE, Influenza Type A (RT-PCR) NEGATIVE, Influenza Type B (RT-PCR) NEGATIVE, Respiratory Syncytial Virus (PCR) NEGATIVE Medications Scheduled Amitriptyline HCl (Amitriptyline HCl) 10 Mg Tablet, 10 MG PO QHS, (Reported) Fluoxetine Hcl (Fluoxetine HCl) 10 Mg Capsule, 30 MG PO DAILY, (Reported) Omeprazole (Omeprazole) 20 Mg Capsule.dr, 40 MG PO QHS, (Reported) Prazosin Hcl (Prazosin HCl) 1 Mg Capsule, 2 MG PO QHS, (Reported) Risperidone (Risperidone) 2 Mg Tablet, 2 MG PO QHS, (Reported) Scheduled PRN Hydroxyzine HCl (Hydroxyzine HCl) 50 Mg Tablet, 50 MG PO BID PRN for ANXIETY, (Reported) Ibuprofen (Ibuprofen) 800 Mg Tablet, 800 MG PO TID PRN for PAIN, (Reported) Allergies Coded Allergies: No Known Allergies (Unverified , 05/31/19) TOM PEÑA NP Aug 10, 2020 15:28
[2020-08-10 17:43] VITALS: BP 126/77
[2020-08-10] MEDS: risperiDONE 2 MG TAB PO SCH (21:20)
[2020-08-10] MEDS: AMITRIPTYLINE 10MG TABLET PO SCH (21:20)
[2020-08-10] MEDS: PRAZOSIN 1 MG CAP PO SCH (21:20)
[2020-08-10] MEDS: OMEPRAZOLE 20 MG CAP PO SCH (21:20)
[2020-08-11 05:49] VITALS: BP 118/55
[2020-08-11] MEDS: FLUoxetine 10 MG CAP PO SCH (08:33)
--- NOTE | 2020-08-11 15:18 | MHIPNPDOC ---
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 Also, reports auditory hallucinations, reporting that he is "worthless." in the interview, he had minimal responses, did not make eye contact and did not state that he had suicidal ideation. He reports auditory hallucinations calling his worthless, a failure. Throughout the interview, he avoids making eye contact and was impoverished in speech, was monosyllabic and reporting severe depression. PER ED REPORT: TW received a call from COURTNEY Gao at [facility]. He stated that he was sending pt to the ED "for a higher level of care." He states that pt reported AH & VH, & the AH are telling him that he is worthless. Per Mr. Crow, pt also expressed SI with no plan. He states that pt is restless & is having difficulty communicating. Pt was brought to the ED by [facility] after pt voiced SI with no plan to [facility] provider. He also reported command AH telling him that he is a "failure" and should kill himself. Pt states, "I don't feel safe." Pt reports suffering from fleeting SI with no specific plan, last thought was this morning. Stressors include his Mother being sick and is obligated to send money home([facility]). In addition to above stressor, he admits struggling with command AH over the past few days. He states the voices are derogatory and tell him to kill himself. He believes he is worthless and does not deserve to live. Pt also reports having VH. He describes VH as "my mother and odd things that I cannot explain." Pt appears very depressed during interview, he notes feeling increasingly paranoid and believes "random" people are following him with intent to kill him. At this time, pt continues to express SI with no plan and command AH. Pt was last admitted to [facility] 07/19/20 and d/c 07/28/20. Discharge diagnosis was Major Depressive Disorder, single episode with Psychotic Features. According to [facility] documentation, pt is currently under EVA investigation for an unauthorized trip to [place] and returning with a large sum of money. He apparently denied to [facility] provider that he is in trouble and denied he was on a plane. Pt also denied EVA investigation to TW. VITAL SIGNS: See below. CURRENT MEDICATIONS: See below. MENTAL STATUS EXAMINATION: Patient is a -year old male, who is . General Appearance: well groomed, appears stated age, hospital scrubs/clothing Build: other (, muscular build) Demeanor: mistrustful, withdrawn, guarded Eye Contact: avoidant, other (, eyes were closed) Speech: slow, low in volume, impoverished Mood: depressed, anxious Affect: constricted Thought Process: logical/linear Thought Content (Delusions): none reported Thought Content (Other): none reported Thought Content (Aggressive): none reported Perception (Hallucinations): auditory, visual Perception (Other): none reported Cognition (Impairment of): none reported Cognition(Intelligence Est.): average Oriented: Awake, Alert, Oriented times three Insight: fair Judgment: Fair Psychosis: Denies (Unspecified Depressive Disorder) DIAGNOSES: Major Depressive Disorder, recurrent, mild ASSESSMENT: Patient found sleeping, agreeable to interview. States that he had poor sleep, having nightmares. States that he sees friends and family in his nightmares but vague as to why these are nightmares vs dreams. He makes no eye contact, is very flat and reports that he is depressed. His speech is inaudible initially, later in the interview his speech is normal rate tone and volume when I ask about his being investigated for leaving the country without permission. He states that he is not being investigated and that it is no concern to him "they cannot do more to me" He reports feelings of being watched, when I reiterate that this may be true int eh sense that he is being investigated, he denies that this is what he is feeling. Reports his stressors are that he cannot control: His mother being sick, he complains of shoulder, back and neck pain, feelings of being useless, stressed and anxious MANAGEMENT PLAN: Continue all medications, discharge pending TIME SPENT: 25] minutes. Vital Signs Vital Signs Date Time Temp Pulse Resp B/P (MAP) Pulse Ox O2 Delivery O2 Flow Rate FiO2 08/11/20 05:49 97.7 60 16 118/55 (76) 100 Room Air Current Medications Current Medications Medications (Trade) Dose Ordered Sig/Sameera Route PRN Reason Start Time Stop Time Status Last Admin Dose Admin Acetaminophen (Tylenol Tab) 650 mg Q6HP PRN PO HEADACHE or MILD DISCOMFORT 08/09/20 18:45 08/10/20 12:14 Al Hydrox/Mg Hydrox/Simethicone (Mylanta) 30 ml Q4HP PRN PO HEARTBURN/INDIGESTION 08/09/20 18:45 Amitriptyline HCl (Elavil) 10 mg QHS PO 08/09/20 21:00 08/10/20 21:20 Fluoxetine HCl (PROzac) 30 mg DAILY PO 08/09/20 09:00 08/11/20 08:33 Home Med (Med Rec Complete!) ASDIRECTED XX 08/09/20 15:20 08/09/20 15:18 DC Hydroxyzine HCl (Atarax) 50 mg BID PRN PO ANXIETY 08/09/20 18:45 08/10/20 12:13 Ibuprofen (Advil) 800 mg TID PRN PO PAIN 08/09/20 18:45 Lorazepam (Ativan) 1 mg Q6HP PRN PO ANXIETY/AGITATION 08/09/20 18:45 Magnesium Hydroxide (Milk Of Magnesia) 30 ml DAILYPRN PRN PO CONSTIPATION 08/09/20 18:45 Omeprazole (PriLOSEC) 40 mg QHS PO 08/09/20 21:00 08/10/20 21:20 Prazosin HCl (Minipress) 2 mg QHS PO 08/09/20 21:00 08/10/20 21:20 Risperidone (RisperDAL) 2 mg QHS PO 08/09/20 21:00 08/10/20 21:20 Trazodone HCl (Desyrel) 50 mg QHSP PRN PO INSOMNIA 08/09/20 18:45 Allergies Coded Allergies: No Known Allergies (Unverified , 05/31/19) TOM PEÑA NP Aug 11, 2020 14:21
[2020-08-11 16:57] VITALS: BP 128/67
[2020-08-11] MEDS: AMITRIPTYLINE 10MG TABLET PO SCH (20:19)
[2020-08-11] MEDS: risperiDONE 2 MG TAB PO SCH (20:19)
[2020-08-11] MEDS: OMEPRAZOLE 20 MG CAP PO SCH (20:19)
[2020-08-11] MEDS: PRAZOSIN 1 MG CAP PO SCH (20:20)
[2020-08-11] MEDS: ACETAMINOPHEN TAB 650MG DOSE (2X325MG) PO PRN (20:23)
[2020-08-12 06:00] VITALS: BP 126/58
[2020-08-12] MEDS: FLUoxetine 10 MG CAP PO SCH (08:16)
--- NOTE | 2020-08-12 10:03 | MHIPNPDOC ---
[facility] Progress Note Progress Note DATE OF SERVICE: 08/12/20 This is his second admission in the past month. For complaint of the depression with the psychotic symptoms. He states that he took "his medicine, but really d oesn't feel much different. He is in bed in no acute distress, is alert and awake but not very productive on his response. He is mumbling a little appears rather dramatic and continued to report that he hears voices sometimes and feeling depressed but denies any active suicidal plan or intent and doesn't appear to be in any acute emotional distress. We'll continue with the current medicine and evaluate for lethality HISTORY: . VITAL SIGNS: See below. NEW TEST RESULTS: . CURRENT MEDICATIONS: See below. MENTAL STATUS EXAMINATION: Patient is a 30-year old male, who is in no acute distress . Speech: Is , not productive. Language skills are poor. Thought processes including: Relevant. Thought content: Claimed he still has problems with hearing voices. Abstract reasoning, and computation: poor. Description of associations: , Not spontaneous. Description of abnormal or psychotic thoughts: Reports hearing voices but no active suicidal plan. Judgment: , Poor. Insight: poor. Orientation: Appears oriented. Recent and remote memory: fair. Attention span and concentration: [poor. Language: . Fund of knowledge: . Mood: Reports feeling depressed. Affect: , Somewhat blunted and if. DIAGNOSES: 1. . Major depression 2. . 3. . ASSESSMENT:, No significant change. Possibility of the malingering to be considered MANAGEMENT PLAN: Continued the current treatment. TIME SPENT: 15 minutes. Vital Signs Vital Signs Date Time Temp Pulse Resp B/P (MAP) Pulse Ox O2 Delivery O2 Flow Rate FiO2 08/12/20 08:27 Room Air 08/12/20 06:00 98.7 67 18 126/58 (80) 100 Current Medications Current Medications Medications (Trade) Dose Ordered Sig/Sameera Route PRN Reason Start Time Stop Time Status Last Admin Dose Admin Acetaminophen (Tylenol Tab) 650 mg Q6HP PRN PO HEADACHE or MILD DISCOMFORT 08/09/20 18:45 08/11/20 20:23 Al Hydrox/Mg Hydrox/Simethicone (Mylanta) 30 ml Q4HP PRN PO HEARTBURN/INDIGESTION 08/09/20 18:45 Amitriptyline HCl (Elavil) 10 mg QHS PO 08/09/20 21:00 08/11/20 20:19 Fluoxetine HCl (PROzac) 30 mg DAILY PO 08/09/20 09:00 08/12/20 08:16 Home Med (Med Rec Complete!) ASDIRECTED XX 08/09/20 15:20 08/09/20 15:18 DC Hydroxyzine HCl (Atarax) 50 mg BID PRN PO ANXIETY 08/09/20 18:45 08/10/20 12:13 Ibuprofen (Advil) 800 mg TID PRN PO PAIN 08/09/20 18:45 Lorazepam (Ativan) 1 mg Q6HP PRN PO ANXIETY/AGITATION 08/09/20 18:45 Magnesium Hydroxide (Milk Of Magnesia) 30 ml DAILYPRN PRN PO CONSTIPATION 08/09/20 18:45 Omeprazole (PriLOSEC) 40 mg QHS PO 08/09/20 21:00 08/11/20 20:19 Prazosin HCl (Minipress) 2 mg QHS PO 08/09/20 21:00 08/11/20 20:20 Risperidone (RisperDAL) 2 mg QHS PO 08/09/20 21:00 08/11/20 20:19 Trazodone HCl (Desyrel) 50 mg QHSP PRN PO INSOMNIA 08/09/20 18:45 Allergies Coded Allergies: No Known Allergies (Unverified , 05/31/19) LISE RUTLEDGE M.D. Aug 12, 2020 10:03
[2020-08-12] MEDS: hydrOXYzine 50 MG TAB PO PRN (13:16)
[2020-08-12] MEDS: ACETAMINOPHEN TAB 650MG DOSE (2X325MG) PO PRN (13:17)
[2020-08-12 16:37] VITALS: BP 126/64
[2020-08-12] MEDS: risperiDONE 2 MG TAB PO SCH (20:34)
[2020-08-12] MEDS: PRAZOSIN 1 MG CAP PO SCH (20:34)
[2020-08-12] MEDS: OMEPRAZOLE 20 MG CAP PO SCH (20:34)
[2020-08-12] MEDS: AMITRIPTYLINE 10MG TABLET PO SCH (20:34)
[2020-08-13 06:25] VITALS: BP 110/55
[2020-08-13] MEDS: FLUoxetine 10 MG CAP PO SCH (08:41)
[2020-08-13] MEDS: hydrOXYzine 50 MG TAB PO PRN (09:48)
[2020-08-13 17:36] VITALS: BP 102/55
[2020-08-13] MEDS: OMEPRAZOLE 20 MG CAP PO SCH (20:40)
[2020-08-13] MEDS: risperiDONE 2 MG TAB PO SCH (20:40)
[2020-08-13] MEDS: AMITRIPTYLINE 10MG TABLET PO SCH (20:40)
[2020-08-13] MEDS: PRAZOSIN 1 MG CAP PO SCH (20:40)
[2020-08-14 06:48] VITALS: BP 117/55
[2020-08-14] MEDS: FLUoxetine 10 MG CAP PO SCH (09:01)
--- NOTE | 2020-08-14 11:28 | MHIPNPDOC ---
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 Also, reports auditory hallucinations, reporting that he is "worthless." in the interview, he had minimal responses, did not make eye contact and did not state that he had suicidal ideation. He reports auditory hallucinations calling his worthless, a failure. Throughout the interview, he avoids making eye contact and was impoverished in speech, was monosyllabic and reporting severe depression. PER ED REPORT: TW received a call from COURTNEY Gao at [facility]. He stated that he was sending pt to the ED "for a higher level of care." He states that pt reported AH & VH, & the AH are telling him that he is worthless. Per Mr. Crow, pt also expressed SI with no plan. He states that pt is restless & is having difficulty communicating. Pt was brought to the ED by [facility] after pt voiced SI with no plan to [facility] provider. He also reported command AH telling him that he is a "failure" and should kill himself. Pt states, "I don't feel safe." Pt reports suffering from fleeting SI with no specific plan, last thought was this morning. Stressors include his Mother being sick and is obligated to send money home([facility]). In addition to above stressor, he admits struggling with command AH over the past few days. He states the voices are derogatory and tell him to kill himself. He believes he is worthless and does not deserve to live. Pt also reports having VH. He describes VH as "my mother and odd things that I cannot explain." Pt appears very depressed during interview, he notes feeling increasingly paranoid and believes "random" people are following him with intent to kill him. At this time, pt continues to express SI with no plan and command AH. Pt was last admitted to [facility] 07/19/20 and d/c 07/28/20. Discharge diagnosis was Major Depressive Disorder, single episode with Psychotic Features. According to [facility] documentation, pt is currently under EVA investigation for an unauthorized trip to [place] and returning with a large sum of money. He apparently denied to [facility] provider that he is in trouble and denied he was on a plane. Pt also denied EVA investigation to TW. VITAL SIGNS: See below. CURRENT MEDICATIONS: See below. 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 Also, reports auditory hallucinations, reporting that he is "worthless." General Appearance: well groomed, appears stated age, hospital scrubs/clothing Build: other (, muscular build) Demeanor: cooperative Eye Contact: maintained Speech: normal tone, Mood: angry, mildly depressed Affect: appropriate, tearful at times Thought Process: logical/linear Thought Content (Delusions): none reported Thought Content (Other): none reported Thought Content (Aggressive): none reported Perception (Hallucinations): auditory "worthless" Perception (Other): none reported Cognition (Impairment of): none reported Cognition(Intelligence Est.): average Oriented: Awake, Alert, Oriented times three Insight: fair Judgment: Fair Psychosis: Denies (Unspecified Depressive Disorder) DIAGNOSES: Major Depressive Disorder, recurrent, mild ASSESSMENT: Patient presents today more animated, more hopeful especially after speaking with a nurse yesterday about how this all started. He states that he has been thinking a lot and is trying to find a purpose for his life and making it better. He seemed more energetic states that he has been having better sleep. His depression today has decreased from 8/10 to 6/10. He reports some anxiety regarding his future but overall states he has improved. 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 His injuries made him unable to deliver his duties effectively. In the beginning of the year, he was diagnosed with COVID, and he was sick for 2 months after which during the month of Ramadan he continued to feel weak and unable to perform adequately which made him an easy target for his chain of command. He repeatedly asked for some special consideration during his illness and the month of fasting to go easy on his duties. Those requests were denied repeatedly. During this course, he learned that his mother was ill. He requested a leave of absence to attend to her needs in [place]. He was denied the leave numerous times. He attempted to request reduced days of absence and these were denied as well. He reports that this started his feelings of hopelessness and restlessness. He feels cheated and betrayed by his chain of command who did not understand his family's situation, his spirituality, his culture, and his physical disabilities. He especially feels targeted since he is a [employer]. He states that he is stereotyped even though he has tried time and again to be model soldier and do right by his duties. He states that he has memory lapses and episodes of anger during this time period which pushed him to seek Behavioral Health services. All this escalated into him having episodes of blacking out and ending at [facility]. He says he has also been in trouble for situations that he does not remember. But it thinks it could have been avoided if someone had helped him earlier. He says that he is improving and attending group therapy which seems to help. Encouraged continuing counseling and therapy work at [facility]. He is accepting the legal consequences surrounding the investigation. MANAGEMENT PLAN: Continue all medications, discharge pending TIME SPENT: 25] minutes. Vital Signs Vital Signs Date Time Temp Pulse Resp B/P (MAP) Pulse Ox O2 Delivery O2 Flow Rate FiO2 08/14/20 06:48 98.5 61 16 117/55 (75) 100 Room Air Current Medications Current Medications Medications (Trade) Dose Ordered Sig/Sameera Route PRN Reason Start Time Stop Time Status Last Admin Dose Admin Acetaminophen (Tylenol Tab) 650 mg Q6HP PRN PO HEADACHE or MILD DISCOMFORT 08/09/20 18:45 08/12/20 13:17 Al Hydrox/Mg Hydrox/Simethicone (Mylanta) 30 ml Q4HP PRN PO HEARTBURN/INDIGESTION 08/09/20 18:45 Amitriptyline HCl (Elavil) 10 mg QHS PO 08/09/20 21:00 08/13/20 20:40 Fluoxetine HCl (PROzac) 30 mg DAILY PO 08/09/20 09:00 08/14/20 09:01 Home Med (Med Rec Complete!) ASDIRECTED XX 08/09/20 15:20 08/09/20 15:18 DC Hydroxyzine HCl (Atarax) 50 mg BID PRN PO ANXIETY 08/09/20 18:45 08/13/20 09:48 Ibuprofen (Advil) 800 mg TID PRN PO PAIN 08/09/20 18:45 08/13/20 09:49 Lorazepam (Ativan) 1 mg Q6HP PRN PO ANXIETY/AGITATION 08/09/20 18:45 Magnesium Hydroxide (Milk Of Magnesia) 30 ml DAILYPRN PRN PO CONSTIPATION 08/09/20 18:45 Omeprazole (PriLOSEC) 40 mg QHS PO 08/09/20 21:00 08/13/20 20:40 Prazosin HCl (Minipress) 2 mg QHS PO 08/09/20 21:00 08/13/20 20:40 Risperidone (RisperDAL) 2 mg QHS PO 08/09/20 21:00 08/13/20 20:40 Trazodone HCl (Desyrel) 50 mg QHSP PRN PO INSOMNIA 08/09/20 18:45 Allergies Coded Allergies: No Known Allergies (Unverified , 05/31/19) TOM PEÑA NP Aug 14, 2020 10:22
[2020-08-14 16:18] VITALS: BP 122/60
[2020-08-14] MEDS: OMEPRAZOLE 20 MG CAP PO SCH (20:29)
[2020-08-14] MEDS: risperiDONE 2 MG TAB PO SCH (20:29)
[2020-08-14] MEDS: AMITRIPTYLINE 10MG TABLET PO SCH (20:29)
[2020-08-14] MEDS: PRAZOSIN 1 MG CAP PO SCH (20:29)
[2020-08-15 06:13] VITALS: BP 148/76
[2020-08-15] MEDS: FLUoxetine 10 MG CAP PO SCH (08:18)
--- NOTE | 2020-08-15 11:51 | MHIPNPDOC ---
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 Also, reports auditory hallucinations, reporting that he is "worthless." in the interview, he had minimal responses, did not make eye contact and did not state that he had suicidal ideation. He reports auditory hallucinations calling his worthless, a failure. Throughout the interview, he avoids making eye contact and was impoverished in speech, was monosyllabic and reporting severe depression. PER ED REPORT: TW received a call from COURTNEY Gao at [facility]. He stated that he was sending pt to the ED "for a higher level of care." He states that pt reported AH & VH, & the AH are telling him that he is worthless. Per Mr. Crow, pt also expressed SI with no plan. He states that pt is restless & is having difficulty communicating. Pt was brought to the ED by [facility] after pt voiced SI with no plan to [facility] provider. He also reported command AH telling him that he is a "failure" and should kill himself. Pt states, "I don't feel safe." Pt reports suffering from fleeting SI with no specific plan, last thought was this morning. Stressors include his Mother being sick and is obligated to send money home([facility]). In addition to above stressor, he admits struggling with command AH over the past few days. He states the voices are derogatory and tell him to kill himself. He believes he is worthless and does not deserve to live. Pt also reports having VH. He describes VH as "my mother and odd things that I cannot explain." Pt appears very depressed during interview, he notes feeling increasingly paranoid and believes "random" people are following him with intent to kill him. At this time, pt continues to express SI with no plan and command AH. Pt was last admitted to [facility] 07/19/20 and d/c 07/28/20. Discharge diagnosis was Major Depressive Disorder, single episode with Psychotic Features. According to [facility] documentation, pt is currently under EVA investigation for an unauthorized trip to [place] and returning with a large sum of money. He apparently denied to [facility] provider that he is in trouble and denied he was on a plane. Pt also denied EVA investigation to TW. VITAL SIGNS: See below. CURRENT MEDICATIONS: See below. 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 Also, reports auditory hallucinations, reporting that he is "worthless." General Appearance: well groomed, appears stated age, hospital scrubs/clothing Build: other (, muscular build) Demeanor: cooperative Eye Contact: maintained Speech: normal tone, Mood: less depressed Affect: appropriate, reactive Thought Process: logical/linear Thought Content (Delusions): none reported Thought Content (Other): none reported Thought Content (Aggressive): none reported Perception (Hallucinations): auditory "worthless" Perception (Other): none reported Cognition (Impairment of): none reported Cognition(Intelligence Est.): average Oriented: Awake, Alert, Oriented times three Insight: fair Judgment: Fair Psychosis: Denies (Unspecified Depressive Disorder) DIAGNOSES: Major Depressive Disorder, recurrent, mild ASSESSMENT: Patient appears more focused today engaged in the interview. He states that he is motivated after yesterday's interview with Dr. Marquez. . He reported that he is more future oriented and less angry. He is very confused about the allegations that the [employer] is making. He reports that the [employer] contests 2 days that he was missing. He states those 2 days. They are reporting that he went to [place] and back. He states there is no logic or mathematical ability to go to [facility] and return in 48 hours because there is always a layover in a country. He also states that he does not have a passport. He wants to face the [employer]'s allegations and point out that in the timeframe that they are talking about, he would not be able to go to [place] visit with his family and return with the layovers. He appeared to be quite analytical today in I discussed with him discharging him within the next 2 days. He states that he agrees and wants to return to his family. He denies suicidal thinking at this time reporting that he has love or his mother and his child. He reported that he may have paternity ties that points to carranza lineage. , He was quite confused in the interview regarding the investigation stating that his family would be speaking to him as if they had seen him very recently versus asking him to return home to [facility] to see his mother. MANAGEMENT PLAN: Continue all medications, discharge pending TIME SPENT: 25 minutes. Vital Signs Vital Signs Date Time Temp Pulse Resp B/P (MAP) Pulse Ox O2 Delivery O2 Flow Rate FiO2 08/15/20 06:13 98.6 68 16 148/76 (100) 99 Room Air Current Medications Current Medications Medications (Trade) Dose Ordered Sig/Sameera Route PRN Reason Start Time Stop Time Status Last Admin Dose Admin Acetaminophen (Tylenol Tab) 650 mg Q6HP PRN PO HEADACHE or MILD DISCOMFORT 08/09/20 18:45 08/12/20 13:17 Al Hydrox/Mg Hydrox/Simethicone (Mylanta) 30 ml Q4HP PRN PO HEARTBURN/INDIGESTION 08/09/20 18:45 Amitriptyline HCl (Elavil) 10 mg QHS PO 08/09/20 21:00 08/14/20 20:29 Fluoxetine HCl (PROzac) 30 mg DAILY PO 08/09/20 09:00 08/15/20 08:18 Home Med (Med Rec Complete!) ASDIRECTED XX 08/09/20 15:20 08/09/20 15:18 DC Hydroxyzine HCl (Atarax) 50 mg BID PRN PO ANXIETY 08/09/20 18:45 08/13/20 09:48 Ibuprofen (Advil) 800 mg TID PRN PO PAIN 08/09/20 18:45 08/13/20 09:49 Lorazepam (Ativan) 1 mg Q6HP PRN PO ANXIETY/AGITATION 08/09/20 18:45 Magnesium Hydroxide (Milk Of Magnesia) 30 ml DAILYPRN PRN PO CONSTIPATION 08/09/20 18:45 Omeprazole (PriLOSEC) 40 mg QHS PO 08/09/20 21:00 08/14/20 20:29 Prazosin HCl (Minipress) 2 mg QHS PO 08/09/20 21:00 08/14/20 20:29 Risperidone (RisperDAL) 2 mg QHS PO 08/09/20 21:00 08/14/20 20:29 Trazodone HCl (Desyrel) 50 mg QHSP PRN PO INSOMNIA 08/09/20 18:45 Allergies Coded Allergies: No Known Allergies (Unverified , 05/31/19) TOM PEÑA NP Aug 15, 2020 11:51
[2020-08-15 16:18] VITALS: BP 109/59
[2020-08-15] MEDS: AMITRIPTYLINE 10MG TABLET PO SCH (20:39)
[2020-08-15] MEDS: OMEPRAZOLE 20 MG CAP PO SCH (20:39)
[2020-08-15] MEDS: PRAZOSIN 1 MG CAP PO SCH (20:39)
[2020-08-15] MEDS: risperiDONE 2 MG TAB PO SCH (20:39)
[2020-08-16 06:03] VITALS: BP 133/82
[2020-08-16] MEDS: FLUoxetine 10 MG CAP PO SCH (08:36)
--- NOTE | 2020-08-16 15:27 | MHIPNPDOC ---
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 Also, reports auditory hallucinations, reporting that he is "worthless." in the interview, he had minimal responses, did not make eye contact and did not state that he had suicidal ideation. He reports auditory hallucinations calling his worthless, a failure. Throughout the interview, he avoids making eye contact and was impoverished in speech, was monosyllabic and reporting severe depression. PER ED REPORT: TW received a call from COURTNEY Gao at [facility]. He stated that he was sending pt to the ED "for a higher level of care." He states that pt reported AH & VH, & the AH are telling him that he is worthless. Per Mr. Crow, pt also expressed SI with no plan. He states that pt is restless & is having difficulty communicating. Pt was brought to the ED by [facility] after pt voiced SI with no plan to [facility] provider. He also reported command AH telling him that he is a "failure" and should kill himself. Pt states, "I don't feel safe." Pt reports suffering from fleeting SI with no specific plan, last thought was this morning. Stressors include his Mother being sick and is obligated to send money home([facility]). In addition to above stressor, he admits struggling with command AH over the past few days. He states the voices are derogatory and tell him to kill himself. He believes he is worthless and does not deserve to live. Pt also reports having VH. He describes VH as "my mother and odd things that I cannot explain." Pt appears very depressed during interview, he notes feeling increasingly paranoid and believes "random" people are following him with intent to kill him. At this time, pt continues to express SI with no plan and command AH. Pt was last admitted to [facility] 07/19/20 and d/c 07/28/20. Discharge diagnosis was Major Depressive Disorder, single episode with Psychotic Features. According to [facility] documentation, pt is currently under EVA investigation for an unauthorized trip to [place] and returning with a large sum of money. He apparently denied to [facility] provider that he is in trouble and denied he was on a plane. Pt also denied EVA investigation to TW. VITAL SIGNS: See below. CURRENT MEDICATIONS: See below. 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 Also, reports auditory hallucinations, reporting that he is "worthless." General Appearance: well groomed, appears stated age, hospital scrubs/clothing Build: other (, muscular build) Demeanor: cooperative Eye Contact: maintained Speech: normal tone, Mood: euthymic Affect: full, reactive Thought Process: logical/linear Thought Content (Delusions): none reported Thought Content (Other): none reported Thought Content (Aggressive): none reported Perception (Hallucinations): less audible but continues to report auditory hallucinations, complains of nightmares Perception (Other): none reported Cognition (Impairment of): none reported Cognition(Intelligence Est.): average Oriented: Awake, Alert, Oriented times three Insight: good Judgment: good Psychosis: Denies (Unspecified Depressive Disorder) DIAGNOSES: Major Depressive Disorder, recurrent, mild PTSD ASSESSMENT: Patient's memory is improving. He reports that his states that he has periods of time that he cannot remember. He is remembering today that he had moments of derealization. States that he feels that over the course of several months due to declining health and his stress over not being able to go to [place], because the country was shut down and him having an [employer] passport. He reports that he went to group yesterday that talked about coping mechanisms and seeing things a different way. He states his views were making him feel crazy. Reports that he feels that he had derealization experiences that may have triggered suicidal thinking. He says wasn't directing these thoughts but that the suicide was directing him. After his participation in the group he reports that he wants to identify triggers that are increasing anxiety, depression and agitation. He states that some of his symptoms are: it feels like he is watching his life is a movie, having nightmares, he feels that he is outside of his body, hallucinating about seeing and hearing his mother. Patient is reporting that he has improvement in his depressive and anxiety symptoms but still has nightmares and auditory hallucinations. He feels that he needs to continue therapy. Is future oriented, reports that he would like to move forward with facing any investigations, although, he reports that he could not have returned to [facility], having an passport, and not special accommodations from [facility] [place] to be admitted into the country without this documentation. He vehemently denies that he was ever in [place], could not have been able to go and [place] base in the timeframe that the [employer] is saying that he was gone. He reports that much of his stressors and symptoms began at the time that Ramadan was occurring and that he was not given any accommodations for this. He also reports a significant amount of restlessness and anxiety when he learned his mother was becoming very ill and he had put in several requests to go to [facility] and was denied. He states that his would wake him up because he would be very angry and he was punching resendiz in his sleep. In today's meeting he was smiling, feeling that he has a better understanding of what he was experiencing. Depression with abnormal psychiatric symptoms of hallucinations and derealization. He states that he wants to work on identifying his triggers/stressors. He wants to complete his [employer] contract, return to a place where he and his has more supports ([place] - where her family is from) and probably return to school. 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 He wants to go to school for a health related field. Encouraged patient to find supports in his and begin communication with her about his feelings and emotions. Patient is agreeable to discharge tomorrow. MANAGEMENT PLAN: Continue all medications, discharge tomorrow TIME SPENT: 25 minutes. Vital Signs Vital Signs Date Time Temp Pulse Resp B/P (MAP) Pulse Ox O2 Delivery O2 Flow Rate FiO2 08/16/20 06:03 99.2 65 18 133/82 (99) 100 Room Air Current Medications Current Medications Medications (Trade) Dose Ordered Sig/Sameera Route PRN Reason Start Time Stop Time Status Last Admin Dose Admin Acetaminophen (Tylenol Tab) 650 mg Q6HP PRN PO HEADACHE or MILD DISCOMFORT 08/09/20 18:45 08/12/20 13:17 Al Hydrox/Mg Hydrox/Simethicone (Mylanta) 30 ml Q4HP PRN PO HEARTBURN/INDIGESTION 08/09/20 18:45 Amitriptyline HCl (Elavil) 10 mg QHS PO 08/09/20 21:00 08/15/20 20:39 Fluoxetine HCl (PROzac) 30 mg DAILY PO 08/09/20 09:00 08/16/20 08:36 Home Med (Med Rec Complete!) ASDIRECTED XX 08/09/20 15:20 08/09/20 15:18 DC Hydroxyzine HCl (Atarax) 50 mg BID PRN PO ANXIETY 08/09/20 18:45 08/13/20 09:48 Ibuprofen (Advil) 800 mg TID PRN PO PAIN 08/09/20 18:45 08/13/20 09:49 Lorazepam (Ativan) 1 mg Q6HP PRN PO ANXIETY/AGITATION 08/09/20 18:45 Magnesium Hydroxide (Milk Of Magnesia) 30 ml DAILYPRN PRN PO CONSTIPATION 08/09/20 18:45 Omeprazole (PriLOSEC) 40 mg QHS PO 08/09/20 21:00 08/15/20 20:39 Prazosin HCl (Minipress) 2 mg QHS PO 08/09/20 21:00 08/15/20 20:39 Risperidone (RisperDAL) 2 mg QHS PO 08/09/20 21:00 08/15/20 20:39 Trazodone HCl (Desyrel) 50 mg QHSP PRN PO INSOMNIA 08/09/20 18:45 Allergies Coded Allergies: No Known Allergies (Unverified , 05/31/19) TOM PEÑA NP Aug 16, 2020 12:18
[2020-08-16 16:09] VITALS: BP 138/85
[2020-08-16] MEDS: AMITRIPTYLINE 10MG TABLET PO SCH (20:19)
[2020-08-16] MEDS: OMEPRAZOLE 20 MG CAP PO SCH (20:19)
[2020-08-16 20:20] VITALS: BP 133/84
[2020-08-16] MEDS: PRAZOSIN 1 MG CAP PO SCH (20:20)
[2020-08-16] MEDS ORDERED: risperiDONE 3 MG TAB PO SCH (21:00)
[2020-08-17] MEDS ORDERED: OMEP1CAP73 PO (06:15)
[2020-08-17] MEDS ORDERED: AMIT10TA7 PO ×2 (06:15→09:55)
[2020-08-17] MEDS ORDERED: HYDR50TA70 PO ×2 (06:15→09:55)
[2020-08-17] MEDS ORDERED: IBUP1TAB7 PO (06:15)
[2020-08-17] MEDS ORDERED: MINI1CAP PO ×2 (06:15→09:55)
[2020-08-17] MEDS ORDERED: RISP-10 PO ×2 (06:15→09:55)
[2020-08-17] MEDS ORDERED: TRAZ-252 PO ×2 (06:15→09:55)
[2020-08-17] MEDS ORDERED: FLUO10CA16 PO ×2 (06:15→09:55)
[2020-08-17 06:41] VITALS: BP 146/70
[2020-08-17] MEDS: FLUoxetine 10 MG CAP PO SCH (08:07)
[2020-08-17] MEDS ORDERED: IBUP80TA PO (09:55)
[2020-08-17] MEDS ORDERED: OMEP-218 PO (09:55)
--- NOTE | 2020-08-17 12:03 | MHDSPDOC ---
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 Also, reports auditory hallucinations, reporting that he is "worthless." in the interview, he had minimal responses, did not make eye contact and did not state that he had suicidal ideation. He reports auditory hallucinations calling his worthless, a failure. Throughout the interview, he avoids making eye contact and was impoverished in speech, was monosyllabic and reporting severe depression. PER ED REPORT: TW received a call from COURTNEY Gao at [facility]. He stated that he was sending pt to the ED "for a higher level of care." He states that pt reported AH & VH, & the AH are telling him that he is worthless. Per Eleanor Tristin, pt also expressed SI with no plan. He states that pt is restless & is having difficulty communicating. Pt was brought to the ED by [facility] after pt voiced SI with no plan to [facility] provider. He also reported command AH telling him that he is a "failure" and should kill himself. Pt states, "I don't feel safe." Pt reports suffering from fleeting SI with no specific plan, last thought was this morning. Stressors include his Mother being sick and is obligated to send money home([facility] [place]). In addition to above stressor, he admits struggling with command AH over the past few days. He states the voices are derogatory and tell him to kill himself. He believes he is worthless and does not deserve to live. Pt also reports having VH. He describes VH as "my mother and odd things that I cannot explain." Pt appears very depressed during interview, he notes feeling increasi ngly paranoid and believes "random" people are following him with intent to kill him. At this time, pt continues to express SI with no plan and command AH. Pt was last admitted to [facility] 07/19/20 and d/c 07/28/20. Discharge diagnosis was Major Depressive Disorder, single episode with Psychotic Features. According to [facility] documentation, pt is currently under [employer] investigation for an unauthorized trip to [place] and returning with a large sum of money. He apparently denied to [facility] provider that he is in trouble and denied he was on a plane. Pt also denied EVA investigation to . VITAL SIGNS: See below. CONSULTANTS INVOLVED: See Medical H + P by Hospitalist TREATMENT AND PROGRESS ON THE UNIT: Patient was admitted to the [facility] on a legal status he was afforded the following treatment modalities: 1) Individual Therapy 2) Group Therapy 3) Medication Management 4) Milieu Therapy 5) Safe Environment HOSPITAL COURSE: Patient was admitted to [facility] on a . Initially patient was very depressed, had difficult with speech. He had paucity and impoverished speech, made poor eye contact. He was not reporting suicidal thinking, but he was very minimal in his responses. When asked about his investigation he had denied that he went to [place]. He reports that much of his stress stems from the feelings that he is being targeted for some of his m[employer]on accommodations that were not honored in the [employer] because he is Denominational. He reports that he has had severe depression since he was not able to see his mother, as she is ill. He contests that he could not have returned to [place] in 2 days that they say he was missing. He states that it takes almost 2 full days to go to [facility] with layovers. He also reports that he did not have permission from the [facility] government and he has an [facility] passport. Over the course of the last 3 days patient is more motivated. His mood lighted and he reports a decrease in his depression and anxiety. Patient's memory improved. He had reported that his would tell him that he was having period of poor memory and loss of time. He reported moments of derealization. He states that some of his sympto ms are: it feels like he is watching his life is a movie, having nightmares, he feels that he is outside of his body, hallucinating about seeing and hearing his mother. States that he feels that over the course of several months due to declining health and his stress over not being able to go to [place] to see his mother, feeling like he was being targeted, anxiety and subsequent depression he had blacking out episodes. Patient is reporting that he has improvement in his depressive and anxiety symptoms but still has nightmares and auditory hallucinations but these have diminished/lessened. He has had an improvement in his affect, smiling more with more motivation to return home, open communication with his . Patient's medications were resumed and his Risperdal was increased to 3 mg, states that his medication regimen is effective. DISCHARGE ASSESSMENT: In today's interview, patient is alert and oriented, pts dress is appropriate. Hygiene and grooming is well-kempt. Smiles on approach and is pleasant and engaged in the interview. Denies depression and anxiety. Denies suicidal and homicidal ideation, planning or intent. Denies and is not observed with jasbir, psychotic symptoms of delusions, bizarre thinking, obsessions, paranoia, ruminations illogical thoughts, flight of ideas or having poor insight and judgement. Patient has normal mentation, declines further hospitalization on a voluntary status and meets criteria for discharge today. Patient encouraged to return to hospital if symptoms worsen or change and encouraged to call unit if he/she/they needs to speak to provider for questions regarding medications or care. 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 Denies suicidal/homicidal ideation, planning or intent. Abstract reasoning, and computation: fair Description of associations: denies, none observed Description of abnormal or psychotic thoughts: denies, none observed. Judgment: fair Insight: fair Orientation: alert and oriented to person, place, time and situation Recent and remote memory: intact Attention span and concentration: good Language: expansive Fund of knowledge: average Mood: Euthymic Mood Affect: reactive MEDICATIONS ON DISCHARGE: See Medication Reconciliation PLAN/FOLLOWUP ARRANGEMENTS: The amount of time spent in the coordination of care for this patient was approximately 25 minutes. ETOH/Disorder Med Rx ETOH/DRUG DISORDER RX: N/A Vital Signs/I&Os Vital Signs Date Time Temp Pulse Resp B/P (MAP) Pulse Ox O2 Delivery O2 Flow Rate FiO2 08/17/20 06:41 98.2 87 16 146/70 (95) 100 Room Air Medications Scheduled Amitriptyline HCl (Amitriptyline HCl) 10 Mg Tablet, 10 MG PO QHS for Headaches, #7 Fluoxetine Hcl (Fluoxetine HCl) 10 Mg Capsule, 30 MG PO DAILY for Mood, #21 Omeprazole (Omeprazole) 20 Mg Capsule.dr, 40 MG PO QHS for Acid Reflux, #14 Prazosin HCl (Minipress) 1 Mg Capsule, 2 MG PO QHS for Nightmares, #14 Risperidone (Risperidone) 3 Mg Tablet, 3 MG PO QHS for Hallucinations, #7 Scheduled PRN Hydroxyzine HCl (Hydroxyzine HCl) 50 Mg Tablet, 50 MG PO BID PRN for ANXIETY, #14 Ibuprofen (Ibuprofen) 800 Mg Tablet, 800 MG PO TID PRN for PAIN, #21 Trazodone HCl (Trazodone HCl) 50 Mg Tablet, 50 MG PO QHSP PRN for INSOMNIA, #7 Allergies Coded Allergies: No Known Allergies (Unverified , 05/31/19) TOM PEÑA NP Aug 17, 2020 11:00
== END 2020-08-17 13:00 | disposition home or self-care (01) | DRG 885 ==
LOC: M ED 09:53 → M ED INP 18:41 → M PSY 19:40
PROVIDERS: ADMIT Psychiatry & Neurology Psychiatry; ATTEND Psychiatry & Neurology Psychiatry
DX: F33.0 Major depressive disorder, recurrent, mild (principal); R45.851 Suicidal ideations; F43.10 Post-traumatic stress disorder, unspecified; Z20.822 Contact with and (suspected) exposure to COVID-19; Z79.899 Other long term (current) drug therapy; Z56.89 Other problems related to employment; Z63.79 Other stressful life events affecting family and household; Z86.16 Personal history of COVID-19

== ENCOUNTER 2020-08-29 19:21 | Emergency (ER) | payer OTHER ==
[~2020-08-29] VITALS: Ht 177.8 cm; Wt 90.5 kg
[2020-08-29 19:21] VITALS: BP 133/73
[~2020-08-29 19:21] MED LIST changes: +IBUP80TA PO; +OMEP1CAP73 PO; +PRAZ1CAP PO; +RISP-10 PO; +TRAZ-252 PO
== END 2020-08-29 21:57 | disposition home or self-care (01) ==
LOC: M ED 19:21
DX: F33.9 Major depressive disorder, recurrent, unspecified (principal); Z79.899 Other long term (current) drug therapy

== ENCOUNTER 2020-09-22 19:32 | Emergency (ER) | payer OTHER ==
[~2020-09-22] VITALS: Ht 177.8 cm; Wt 93.0 kg
[2020-09-23] MEDS ORDERED: KETOROLAC 30 MG/ML 1ML VIAL IV ONE (01:30)
[2020-09-23] MEDS ORDERED: NAPR-837 PO (02:38)
--- NOTE | 2020-09-23 03:29 | REPVR ---
PROCEDURE INFORMATION: Exam: XR Chest Exam date and time: 09/23/2020 1:28 AM Age: 30 years old Clinical indication: Left sided chest pain TECHNIQUE: Imaging protocol: XR of the chest. Views: 2 views. COMPARISON: [facility] PORTABLE CHEST X-RAY 04/17/2020 7:43 PM FINDINGS: Lungs: Unremarkable. No consolidation. No pulmonary edema. Pleural spaces: Unremarkable. No pleural effusion. No pneumothorax. Heart/Mediastinum: Unremarkable. No cardiomegaly. Bones/joints: Unremarkable. IMPRESSION: No acute findings. Electronically signed by: Goldy Gillespie On 09/23/2020 03:29:15 AM
[2020-09-23 04:44] VITALS: BP 131/66
--- NOTE | 2020-09-23 09:36 | ECGEPIP ---
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 Order Number: [id number] Reading MD: Samantha Kelly Measurements Intervals [place] Rate: 61 P: 53 [place]: 182 QRS: 45 QRSD: 102 T: 21 QT: 378 QTc: 380 Interpretive Statements Normal sinus rhythm early repolarization decreased rate 07/20/20 Electronically Signed on 09-23-2020 9:35:52 EDT by Samantha Kelly
== END 2020-09-23 04:45 | disposition home or self-care (01) ==
LOC: M ED 19:32
DX: M94.0 Chondrocostal junction syndrome [Tietze] (principal); F33.9 Major depressive disorder, recurrent, unspecified; F41.9 Anxiety disorder, unspecified; F43.10 Post-traumatic stress disorder, unspecified; Z79.899 Other long term (current) drug therapy
CPT/HCPCS: 71046; 84484; 93005; 96374; 99284; J1885